=== PATIENT | female | born 1940 | race Caucasian/White ===

== ENCOUNTER 2017-11-21 19:09 | Observation (INO) ==
[2017-11-21] MEDS ORDERED: Aspirin 81 MG TAB.CHEW PO ONE (19:14)
--- NOTE | 2017-11-21 19:14 | Emergency Department Note ---
Disposition Clinical Impression: Chest pain Disposition: Admitted As Inpatient Condition: Good General Adult HPI - General Chief complaint: ED Chest Pain Stated complaint: chest pain Time Seen by Provider: 11/21/17 19:14 - Related Data Home Medications Medication Instructions Recorded Confirmed Amiodarone HCl [Pacerone] 200 mg PO DAILY 12/14/15 12/14/15 Amlodipine Besylate [Amlodipine 10 mg PO DAILY 12/14/15 12/14/15 Besylate] Clopidogrel [Plavix] 75 mg PO DAILY 12/14/15 12/14/15 Furosemide [Lasix] 20 mg PO DAILY 12/14/15 12/14/15 Isosorbide MONOnitrate (24 HR) 60 mg PO DAILY 12/14/15 12/14/15 [Imdur] Levothyroxine Sodium [Tirosint] 100 mg PO QAM 12/14/15 12/14/15 Losartan Potassium [Cozaar] 100 mg PO DAILY 12/14/15 11/21/17 Magnesium Oxide [Magnesium] 400 mg PO DAILY 12/14/15 11/21/17 Metoprolol Succinate [Metoprolol 50 mg PO DAILY 12/14/15 11/21/17 Succinate] Ondansetron HCl [Zofran] 4 mg PO DAILY PRN 12/14/15 11/21/17 Pantoprazole Sodium [Protonix] 40 mg PO BID 12/14/15 11/21/17 Potassium Chloride [Potassium 10 meq PO DAILY 12/14/15 11/21/17 Chloride] Rivaroxaban [Xarelto] 15 mg PO DAILY 12/14/15 11/21/17 Previous Rx's Medication Instructions Recorded Albuterol Neb [Proventil Neb] 2.5 mg IH Q4HR PRN #30 vial.neb 11/04/15 Ipratropium Neb [Atrovent Neb] 0.5 mg IH Q6H PRN #30 inhsol 11/04/15 Acyclovir [Zovirax] 800 mg PO 5XD #50 tablet 09/15/16 predniSONE [PredniSONE] 40 mg PO NOW #20 tablet 09/15/16 Allergies Allergy/AdvReac Type Severity Reaction Status Date / Time ibuprofen Allergy Dizziness Verified 11/21/17 19:18 Sulfa (Sulfonamide Allergy Rash Verified 11/21/17 19:18 Antibiotics) Past Medical History - Past Medical History Medical history: Reports: atrial fibrillation, CHF, coronary artery disease, hyperlipidemia, hypertension, thyroid disease, other Surgical history: Reports: appendectomy, cholecystectomy, hysterectomy Psychiatric history: Reports: no psych history - Social History Smoking Status: Former smoker Smokeless Tobacco Status: No Alcohol use: Reports: none Drug use: Reports: none Course Vital Signs Temperature 98.0 F 11/21/17 19:18 Pulse Rate 75 11/21/17 19:18 Respiratory Rate 16 11/21/17 19:18 Blood Pressure 175/85 11/21/17 19:18 O2 Sat by Pulse Oximetry 94 11/21/17 19:18 Temperature 98.2 F 11/21/17 21:37 Pulse Rate 65 11/21/17 21:37 Respiratory Rate 16 11/21/17 21:37 Blood Pressure 164/69 11/21/17 21:37 O2 Sat by Pulse Oximetry 95 11/21/17 21:37 Oxygen Delivery Oxygen Delivery Room Air Medical Decision Making - Lab Data Result diagrams: 11/21/17 19:24 11/21/17 19:24 Lab Results 11/21/17 11/21/17 11/21/17 Range/Units 19:14 19:14 19:14 WBC (4.3-11.1) K/mcL RBC (3.82-4.97) M/mcL Hgb (11.5-15.4) g/dL Hct (35.3-44.9) % MCV (83.0-100.0) fL MCH (28.0-33.3) pg MCHC (31.6-35.5) g/dL RDW (11.5-14.5) % Plt Count (140-400) K/mcL MPV (9.4-12.4) fL Immature Gran % (0-4) % Seg Neutrophils % % Lymphocytes % % Monocytes % % Eosinophils % % Basophils % % Neutrophils # (1.6-8.9) K/mcL Lymphocytes # (0.6-4.6) K/mcL Monocytes # (0.0-1.3) K/mcL Eosinophils # (0.0-0.6) K/mcL Basophils # (0.0-0.2) K/mcL PT 15.9 H (9.4-12.1) Seconds INR 1.5 Sodium (136-145) mEq/L Potassium (3.5-5.1) mEq/L Chloride (98-107) mEq/L Carbon Dioxide (23-29) mEq/L BUN (8-23) mg/dL Creatinine (0.60-1.20) mg/dL Est GFR ( Amer) (> 60) Est GFR (Non-Af Amer) (> 60) BUN/Creatinine Ratio (6-26) Glucose (70-105) mg/dL Calculated Osmolality (280-300) Calcium (8.6-10.3) mg/dL Total Bilirubin 0.7 (0.3-1.0) mg/dL Direct Bilirubin 0.2 (0.0-0.2) mg/dL Indirect Bilirubin 0.5 (0.0-1.2) mg/dL AST 25 (13-39) Units/L ALT 19 (7-52) Units/L Alkaline Phosphatase 105 H (34-104) Units/L Troponin I (< 0.04) ng/mL B-Natriuretic Peptide 66 (Less than 100) pg/mL Serum Total Protein 7.4 (6.4-8.9) g/dL Albumin 4.2 (3.5-5.7) g/dL Globulin 3.2 (2.4-3.5) g/dL Albumin/Globulin Ratio 1.3 (1.1-2.2) 11/21/17 11/21/17 Range/Units 19:24 19:24 WBC 7.6 (4.3-11.1) K/mcL RBC 4.84 (3.82-4.97) M/mcL Hgb 14.7 (11.5-15.4) g/dL Hct 44.0 (35.3-44.9) % MCV 90.9 (83.0-100.0) fL MCH 30.4 (28.0-33.3) pg MCHC 33.4 (31.6-35.5) g/dL RDW 12.9 (11.5-14.5) % Plt Count 258 (140-400) K/mcL MPV 10.0 (9.4-12.4) fL Immature Gran % 0.5 (0-4) % Seg Neutrophils % 62.4 % Lymphocytes % 26.7 % Monocytes % 8.3 % Eosinophils % 1.6 % Basophils % 0.5 % Neutrophils # 4.8 (1.6-8.9) K/mcL Lymphocytes # 2.0 (0.6-4.6) K/mcL Monocytes # 0.6 (0.0-1.3) K/mcL Eosinophils # 0.1 (0.0-0.6) K/mcL Basophils # 0.0 (0.0-0.2) K/mcL PT (9.4-12.1) Seconds INR Sodium 137 (136-145) mEq/L Potassium 3.9 (3.5-5.1) mEq/L Chloride 106 (98-107) mEq/L Carbon Dioxide 21 L (23-29) mEq/L BUN 12 (8-23) mg/dL Creatinine 1.19 (0.60-1.20) mg/dL Est GFR ( Amer) 53 L (> 60) Est GFR (Non-Af Amer) 44 L (> 60) BUN/Creatinine Ratio 10 (6-26) Glucose 110 H (70-105) mg/dL Calculated Osmolality 284 (280-300) Calcium 9.4 (8.6-10.3) mg/dL Total Bilirubin (0.3-1.0) mg/dL Direct Bilirubin (0.0-0.2) mg/dL Indirect Bilirubin (0.0-1.2) mg/dL AST (13-39) Units/L ALT (7-52) Units/L Alkaline Phosphatase (34-104) Units/L Troponin I < 0.03 (< 0.04) ng/mL B-Natriuretic Peptide (Less than 100) pg/mL Serum Total Protein (6.4-8.9) g/dL Albumin (3.5-5.7) g/dL Globulin (2.4-3.5) g/dL Albumin/Globulin Ratio (1.1-2.2) Attestation Statement - Attestation Attestation: I examined this patient and my medical decision-making was reviewed with the Resident Physician. I agree with the documented findings, disposition and treatment plan as described except to the extent set forth below. [id number] time provided Patient arrives to the treatment area by wheelchair complaining of chest discomfort and dyspnea. She appears in no acute distress on exam. Patient evaluated in conjunction with the resident physician Dr. Arias
[2017-11-21] MEDS ORDERED: Nitroglycerin 0.4 MG TAB.SUBL SL PRN (19:20)
--- NOTE | 2017-11-21 19:23 | Emergency Department Note ---
Disposition Clinical Impression: Chest pain Qualifiers: Chest pain type: unspecified Qualified Code(s): R07.9 - Chest pain, unspecified Disposition: Admitted As Inpatient Condition: Good Chest Pain HPI - General Chief Complaint: ED Chest Pain Stated Complaint: chest pain Time Seen by Provider: 11/21/17 19:14 Source: patient Mode of arrival: wheelchair Limitations: no limitations Vital Signs Reviewed: Yes Nursing Notes Reviewed: Yes - History of Present Illness HPI Narrative: 77-year-old female history of ACS status post stents in the past, hypertension, A. fib on Coumadin as well as pacemaker presents for evaluation of chest pain. Patient describes chest pain and anterior chest with radiation to her neck. States symptom onset was last night. Patient denies a nausea vomiting or diaphoresis. Patient denies history of heart attacks in the past does state she has had a stent placed. Patient on Plavix as well as Xarelto. Patient denies any abdominal pain. Patient also states that she has a history of hernia. No aggravating or alleviating factors identified. - Related Data Home Medications Medication Instructions Recorded Confirmed Amiodarone HCl [Pacerone] 200 mg PO DAILY 12/14/15 12/14/15 Amlodipine Besylate [Amlodipine 10 mg PO DAILY 12/14/15 12/14/15 Besylate] Clopidogrel [Plavix] 75 mg PO DAILY 12/14/15 12/14/15 Furosemide [Lasix] 20 mg PO DAILY 12/14/15 12/14/15 Isosorbide MONOnitrate (24 HR) 60 mg PO DAILY 12/14/15 12/14/15 [Imdur] Levothyroxine Sodium [Tirosint] 100 mg PO QAM 12/14/15 12/14/15 Losartan Potassium [Cozaar] 100 mg PO DAILY 12/14/15 11/21/17 Magnesium Oxide [Magnesium] 400 mg PO DAILY 12/14/15 11/21/17 Metoprolol Succinate [Metoprolol 50 mg PO DAILY 12/14/15 11/21/17 Succinate] Ondansetron HCl [Zofran] 4 mg PO DAILY PRN 12/14/15 11/21/17 Pantoprazole Sodium [Protonix] 40 mg PO BID 12/14/15 11/21/17 Potassium Chloride [Potassium 10 meq PO DAILY 04/21/16 03/30/18 Chloride] Rivaroxaban [Xarelto] 15 mg PO DAILY 12/14/15 11/21/17 Previous Rx's Medication Instructions Recorded Albuterol Neb [Proventil Neb] 2.5 mg IH Q4HR PRN #30 vial.neb 11/04/15 Ipratropium Neb [Atrovent Neb] 0.5 mg IH Q6H PRN #30 inhsol 11/04/15 Acyclovir [Zovirax] 800 mg PO 5XD #50 tablet 09/15/16 predniSONE [PredniSONE] 40 mg PO NOW #20 tablet 09/15/16 Allergies Allergy/AdvReac Type Severity Reaction Status Date / Time ibuprofen Allergy Dizziness Verified 11/21/17 19:18 Sulfa (Sulfonamide Allergy Rash Verified 11/21/17 19:18 Antibiotics) All systems ED: reviewed and negative except as stated. Constitutional: Denies: fever Cardiovascular: Reports: chest pain Respiratory: Denies: cough, dyspnea Gastrointestinal: Denies: abdominal pain, nausea, vomiting Chest Pain PMH - Past Medical History Medical history: Reports: atrial fibrillation, CHF, coronary artery disease, hyperlipidemia, hypertension, thyroid disease, other Surgical history: Reports: appendectomy, cholecystectomy, hysterectomy Psychiatric history: Reports: no psych history - Social History Smoking Status: Former smoker Alcohol use: Reports: none Drug use: Reports: none Physical Exam - General Limitations: no limitations General appearance: alert, in no apparent distress - Head Head exam: atraumatic, normocephalic, normal inspection - Eye Eye exam: Present: normal appearance, PERRL, EOMI - ENT ENT exam: normal exam - Neck Neck exam: Present: normal inspection - Chest Chest inspection: Present: normal inspection, symmetric chest wall rise - Respiratory Respiratory exam: Present: normal lung sounds bilaterally. Absent: respiratory distress - Cardiovascular Cardiovascular exam: Present: regular rate, normal rhythm. Absent: systolic murmur - Abdominal Exam Abdominal exam: Present: soft, Non-Tender - Extremities Exam Extremities exam: Present: normal inspection. Absent: pedal edema - Expanded Lower Extremity Exam Neurovascular/Tendon exam: Present: normal capillary refill. Absent: pulse deficit, motor deficit, sensory deficit - Neurological Exam Neurological exam: Present: alert, oriented X3, CN II-XII intact - Skin Skin exam: Present: warm, dry, intact, normal color Course - Reevaluation(s) Reevaluation #1: Patient seen and examined. Patient denies any chest pain. Given the patient's history, the patient would likely need further evaluation with cardiopulmonary monitoring and provocative testing. Patient is agreeable with inpatient stay. Time: 20:05 Vital Signs Temperature 98.0 F 11/21/17 19:18 Pulse Rate 75 11/21/17 19:18 Respiratory Rate 16 11/21/17 19:18 Blood Pressure 175/85 11/21/17 19:18 O2 Sat by Pulse Oximetry 94 11/21/17 19:18 Temperature 98.0 F 11/21/17 19:18 Pulse Rate 73 11/21/17 20:51 Respiratory Rate 18 11/21/17 21:13 Blood Pressure 124/87 11/21/17 21:13 O2 Sat by Pulse Oximetry 93 11/21/17 20:51 Oxygen Delivery Oxygen Delivery Room Air Chest Pain - MDM Narrative Medical decision making narrative: 77-year-old female persists for evaluation of chest pain. Patient states she has had chest pain across the anterior chest with radiation to her neck. Patient's pain was relieved during her ED course. Patient does have a history of stents in the past. Patient has not had any recent cardiopulmonary evaluation. Patient's symptoms less likely consistent with a pulmonary embolism and the patient is on oral anticoagulation for her A. fib. - Lab Data Lab results reviewed: Yes I reviewed the patient's lab results. Result diagrams: 11/21/17 19:24 11/21/17 19:24 Lab Results 11/21/17 11/21/17 11/21/17 Range/Units 19:14 19:14 19:14 WBC (4.3-11.1) K/mcL RBC (3.82-4.97) M/mcL Hgb (11.5-15.4) g/dL Hct (35.3-44.9) % MCV (83.0-100.0) fL MCH (28.0-33.3) pg MCHC (31.6-35.5) g/dL RDW (11.5-14.5) % Plt Count (140-400) K/mcL MPV (9.4-12.4) fL Immature Gran % (0-4) % Seg Neutrophils % % Lymphocytes % % Monocytes % % Eosinophils % % Basophils % % Neutrophils # (1.6-8.9) K/mcL Lymphocytes # (0.6-4.6) K/mcL Monocytes # (0.0-1.3) K/mcL Eosinophils # (0.0-0.6) K/mcL Basophils # (0.0-0.2) K/mcL PT 15.9 H (9.4-12.1) Seconds INR 1.5 Sodium (136-145) mEq/L Potassium (3.5-5.1) mEq/L Chloride (98-107) mEq/L Carbon Dioxide (23-29) mEq/L BUN (8-23) mg/dL Creatinine (0.60-1.20) mg/dL Est GFR ( Amer) (> 60) Est GFR (Non-Af Amer) (> 60) BUN/Creatinine Ratio (6-26) Glucose (70-105) mg/dL Calculated Osmolality (280-300) Calcium (8.6-10.3) mg/dL Total Bilirubin 0.7 (0.3-1.0) mg/dL Direct Bilirubin 0.2 (0.0-0.2) mg/dL Indirect Bilirubin 0.5 (0.0-1.2) mg/dL AST 25 (13-39) Units/L ALT 19 (7-52) Units/L Alkaline Phosphatase 105 H (34-104) Units/L Troponin I (< 0.04) ng/mL B-Natriuretic Peptide 66 (Less than 100) pg/mL Serum Total Protein 7.4 (6.4-8.9) g/dL Albumin 4.2 (3.5-5.7) g/dL Globulin 3.2 (2.4-3.5) g/dL Albumin/Globulin Ratio 1.3 (1.1-2.2) 11/21/17 11/21/17 Range/Units 19:24 19:24 WBC 7.6 (4.3-11.1) K/mcL RBC 4.84 (3.82-4.97) M/mcL Hgb 14.7 (11.5-15.4) g/dL Hct 44.0 (35.3-44.9) % MCV 90.9 (83.0-100.0) fL MCH 30.4 (28.0-33.3) pg MCHC 33.4 (31.6-35.5) g/dL RDW 12.9 (11.5-14.5) % Plt Count 258 (140-400) K/mcL MPV 10.0 (9.4-12.4) fL Immature Gran % 0.5 (0-4) % Seg Neutrophils % 62.4 % Lymphocytes % 26.7 % Monocytes % 8.3 % Eosinophils % 1.6 % Basophils % 0.5 % Neutrophils # 4.8 (1.6-8.9) K/mcL Lymphocytes # 2.0 (0.6-4.6) K/mcL Monocytes # 0.6 (0.0-1.3) K/mcL Eosinophils # 0.1 (0.0-0.6) K/mcL Basophils # 0.0 (0.0-0.2) K/mcL PT (9.4-12.1) Seconds INR Sodium 137 (136-145) mEq/L Potassium 3.9 (3.5-5.1) mEq/L Chloride 106 (98-107) mEq/L Carbon Dioxide 21 L (23-29) mEq/L BUN 12 (8-23) mg/dL Creatinine 1.19 (0.60-1.20) mg/dL Est GFR ( Amer) 53 L (> 60) Est GFR (Non-Af Amer) 44 L (> 60) BUN/Creatinine Ratio 10 (6-26) Glucose 110 H (70-105) mg/dL Calculated Osmolality 284 (280-300) Calcium 9.4 (8.6-10.3) mg/dL Total Bilirubin (0.3-1.0) mg/dL Direct Bilirubin (0.0-0.2) mg/dL Indirect Bilirubin (0.0-1.2) mg/dL AST (13-39) Units/L ALT (7-52) Units/L Alkaline Phosphatase (34-104) Units/L Troponin I < 0.03 (< 0.04) ng/mL B-Natriuretic Peptide (Less than 100) pg/mL Serum Total Protein (6.4-8.9) g/dL Albumin (3.5-5.7) g/dL Globulin (2.4-3.5) g/dL Albumin/Globulin Ratio (1.1-2.2) - Radiology Data Radiology results reviewed: Yes I reviewed the patient's radiology results. Chest X-Ray 11/21/17 19:14 IMPRESSION: Cardiomegaly. No radiographic evidence of acute pulmonary disease. D/ / Chaz Meek / Chaz Meek Interpreting Provider: Chaz Meek - EKG Data EKG attestation: Yes I reviewed and interpreted this EKG. EKG shows normal: sinus rhythm Rate: normal Rhythm: NSR Pierce/QRS: left axis deviation, LBBB Interpretation: no acute changes, unchanged when compared to prior tracing (date ), nonspecific ST-T wave changes Heart Score - Score History: Moderately Suspicious EKG: Normal Age: Greater than 65 Risk Factors: Equal/Greater than 3 risk factor or history of atherosclerotic disease Troponin: Less than normal limit HEART Score Total: 5 S.B.A.R. - S.B.A.RRachel Situation: Demographics Background: Presenting Complaint Assessment: Vital Signs, Patient/Family Expectation Recommendation: Barrier(s) to disposition, Recommendation based on pending studies, treatments, or consults S.B.A.RRachel Report Given to: Dr. Taryn Herrera Repor Time: 20:27
[2017-11-21 20:10] LABS: Basophils % 0.5 %; Eosinophils # 0.1 K/mcL (0.0-0.6); Eosinophils % 1.6 %; Hemoglobin 14.7 g/dL (11.5-15.4); Immature Granulocytes % 0.5 % (0-4); Lymphocytes % 26.7 %; Mean Corpuscular HGB Conc 33.4 g/dL (31.6-35.5); Mean Corpuscular Hemoglobin 30.4 pg (28.0-33.3); Mean Corpuscular Volume 90.9 fL (83.0-100.0); Monocytes # 0.6 K/mcL (0.0-1.3); Monocytes % 8.3 %; Neutrophils # 4.8 K/mcL (1.6-8.9); Platelet Count 258 K/mcL (140-400); Red Blood Count 4.84 M/mcL (3.82-4.97); Red Cell Distribution Width 12.9 % (11.5-14.5); Segmented Neutrophils % 62.4 %
[2017-11-21 20:17] LABS: INR 1.5; Prothrombin Time 15.9 Seconds (9.4-12.1)
[2017-11-21 20:41] LABS: Albumin 4.2 g/dL (3.5-5.7); Albumin/Globulin Ratio 1.3 (1.1-2.2); Bilirubin,Direct 0.2 mg/dL (0.0-0.2); Bilirubin,Indirect 0.5 mg/dL (0.0-1.2); Bilirubin,Total 0.7 mg/dL (0.3-1.0); Globulin 3.2 g/dL (2.4-3.5); Total Protein 7.4 g/dL (6.4-8.9)
[2017-11-21 20:43] LABS: BUN/Creatinine Ratio 10 (6-26); Blood Urea Nitrogen 12 mg/dL (8-23); Calcium 9.4 mg/dL (8.6-10.3); Carbon Dioxide 21 mEq/L (23-29); Chloride 106 mEq/L (98-107); Glucose 110 mg/dL (70-105); Osmolality,Calculated 284 (280-300); Potassium 3.9 mEq/L (3.5-5.1); Sodium 137 mEq/L (136-145); Troponin I < 0.03 ng/mL (< 0.04); eGFR For African Americans 53 (> 60); eGFR For Non-African Americans 44 (> 60)
--- NOTE | 2017-11-21 21:19 | Internal Med History&Physical ---
Date of Encounter: 11/21/17 Time of Encounter: 11:00 Assessment and Plan (1) Chest pain Current visit: Yes Status: Acute Patient with substernal burning chest pain 1 day She does have a history of coronary arterial disease with 2 stents in addition to pacemaker placement Will trend serial cardiac biomarkers and monitor on telemetry Also order nuclear medicine stress test for the morning for ACS rule out Qualifiers: Chest pain type: unspecified Qualified Code(s): R07.9 - Chest pain, unspecified (2) Atrial fibrillation Current visit: No Status: Chronic Rate controlled; continue amiodarone and OAC Qualifiers: Atrial fibrillation type: unspecified Qualified Code(s): I48.91 - Unspecified atrial fibrillation (3) CAD (coronary artery disease) Current visit: No Status: Chronic Patient with history of 2 stents years ago Continue Plavix Qualifiers: Qualified Code(s): I25.10 - Atherosclerotic heart disease of [place] coronary artery without angina pectoris (4) Hypothyroid Current visit: Yes Status: Acute Continue levothyroxine Qualifiers: Hypothyroidism type: unspecified Qualified Code(s): E03.9 - Hypothyroidism , unspecified (5) Cardiac pacemaker in situ Current visit: No Status: Chronic Pacemaker was just recently interrogated (6) HTN (hypertension), benign Current visit: Yes Status: Acute Showed; continue home medications (7) DVT prophylaxis Current visit: Yes Status: Acute She on Xarelto Internal Medicine - H&P: HPI Chief complaint: Chest pain Admitted From: Home Plans for Post Hospital Care: Home History of present illness: Patient is a 77-year-old female with past medical history significant for ischemic cardiomyopathy, atrial fibrillation, hypertension, hyperlipidemia and hypothyroid who presents to the ER on 11/21/17 due to chest pain. Patient is a poor historian but reports of a one-day history of substernal burning chest pain which lasts for minutes without any radiation or provoking/ relieving factors. Patient reports of associated symptoms of shortness of breath but denies any nausea/vomiting or diaphoresis. Patient was brought to the ER for further evaluation. In the ER, chest x-ray showed no acute findings. Due to patients cardiac history patient will be admitted for ACS rule out. Past Med Surg Social Fam HX - Past Medical History Medical history: atrial fibrillation, CHF, coronary artery disease, hyperlipidemia, hypertension, thyroid disease, other Psychiatric history: no psych history - Past Surgical History Surgical History: appendectomy, cholecystectomy, hysterectomy - Social History Smoking Status: Former smoker Smokeless Tobacco Status: No Alcohol use: none Drug use: none - Family History Mother Living Status: Hx Family Cancer: Yes Hx Family GI Disorders: Yes (GI Cancer) Internal Medicine - H&P: Meds Albuterol Neb [Proventil Neb] 2.5 mg IH Q4HR PRN #30 vial.neb 11/04/15 [Rx] Ipratropium Neb [Atrovent Neb] 0.5 mg IH Q6H PRN #30 inhsol 11/04/15 [Rx] Amiodarone HCl [Pacerone] 200 mg PO DAILY 12/14/15 [History] Amlodipine Besylate [Amlodipine Besylate] 10 mg PO DAILY 12/14/15 [History] Clopidogrel [Plavix] 75 mg PO DAILY 12/14/15 [History] Furosemide [Lasix] 20 mg PO DAILY 12/14/15 [History] Isosorbide MONOnitrate (24 HR) [Imdur] 60 mg PO DAILY 12/14/15 [History] Levothyroxine Sodium [Tirosint] 100 mg PO QAM 12/14/15 [History] Losartan Potassium [Cozaar] 100 mg PO DAILY 12/14/15 [History] Magnesium Oxide [Magnesium] 400 mg PO DAILY 12/14/15 [History] Metoprolol Succinate [Metoprolol Succinate] 50 mg PO DAILY 12/14/15 [History] Ondansetron HCl [Zofran] 4 mg PO DAILY PRN 12/14/15 [History] Pantoprazole Sodium [Protonix] 40 mg PO BID 12/14/15 [History] Potassium Chloride [Potassium Chloride] 10 meq PO DAILY 12/14/15 [History] Rivaroxaban [Xarelto] 15 mg PO DAILY 12/14/15 [History] Acyclovir [Zovirax] 800 mg PO 5XD #50 tablet 09/15/16 [Rx] predniSONE [PredniSONE] 40 mg PO NOW #20 tablet 09/15/16 [Rx] 3 Allergy/AdvReac Type Severity Reaction Status Date / Time ibuprofen Allergy Dizziness Verified 11/21/17 19:18 Sulfa (Sulfonamide Allergy Rash Verified 11/21/17 19:18 Antibiotics) All Systems PM: A 10-system review of systems was performed and is negative for pertinent findings except as documented above in the HPI. - Constitutional Vitals: Temp Pulse Resp BP Pulse Ox 98.0 F 73 18 124/87 93 11/21/17 19:18 11/21/17 20:51 11/21/17 21:13 11/21/17 21:13 11/21/17 20:51 General appearance: Present: A&O X 3, no acute distress - Head Head exam: Present: normocephalic - Eye Eye exam: Present: normal appearance - ENT ENT exam: Present: mucous membranes moist - Respiratory Respiratory exam: Present: CTAB. Absent: accessory muscle use, rales, rhonchi, wheezes - Cardiovascular Cardiovascular exam: Present: RRR, +S1, +S2. Absent: diastolic murmur, gallop, rubs, systolic murmur - GI/Abdominal GI/Abdominal exam: Present: normal bowel sounds, soft, no peritoneal signs. Absent: distended, tenderness - Extremities Exam Extremities exam: Absent: pedal edema - Neurological Exam Neurological exam: Present: oriented X3 - Psychiatric Psychiatric exam: Present: normal mood - Skin Skin exam: Present: normal color Internal Med - H&P Results - Labs CBC & Chem 7: 11/21/17 19:24 11/21/17 19:24
[2017-11-21] MEDS ORDERED: Naloxone 0.4 MG/ML INJ IVP PRN (21:24)
--- NOTE | 2017-11-21 22:19 | Event Note ---
Date of Encounter: 11/21/17 Time of Encounter: 22:17 Alerted by patient's nurse Kayy that the patient had not had her amiodarone, amlodipine, Plavix, Imdur, Cozaar, or Xarelto today. Instructed nurse to double- check w/pt. and family that pt. had, in fact, not taken these medications today. Nurse confirmed w/pt. and family that pt. had not had these medications. Amiodarone, amlodipine, Plavix, Imdur, Cozaar, and Xarelto ordered for administration now. Pt. to be monitored closely.
[2017-11-21] MEDS: amLODIPine 5 MG TABLET PO SCH (22:34)
[2017-11-21] MEDS: *HR* Amiodarone 200 MG TABLET PO SCH (22:34)
[2017-11-21] MEDS: *HR* Rivaroxaban 15 MG TABLET PO SCH (22:35)
[2017-11-21] MEDS: Isosorbide MONOnitrate (24 HR) 60 MG TAB.ER.24H PO SCH (22:35)
[2017-11-22 02:13] LABS: Basophils # 0.1 K/mcL (0.0-0.2); Basophils % 0.7 %; Eosinophils # 0.1 K/mcL (0.0-0.6); Eosinophils % 1.6 %; Hematocrit 37.8 % (35.3-44.9); Immature Granulocytes % 0.3 % (0-4); Lymphocytes # 1.8 K/mcL (0.6-4.6); Mean Corpuscular HGB Conc 33.1 g/dL (31.6-35.5); Mean Corpuscular Volume 90.6 fL (83.0-100.0); Mean Platelet Volume 9.9 fL (9.4-12.4); Monocytes # 0.6 K/mcL (0.0-1.3); Monocytes % 9.6 %; Neutrophils # 4.1 K/mcL (1.6-8.9); Platelet Count 222 K/mcL (140-400); Red Blood Count 4.17 M/mcL (3.82-4.97); Red Cell Distribution Width 13.1 % (11.5-14.5); Segmented Neutrophils % 60.8 %
[2017-11-22 02:17] LABS: Hemoglobin 12.5 g/dL (11.5-15.4)
[2017-11-22 02:26] LABS: Calcium 8.7 mg/dL (8.6-10.3); Potassium 3.7 mEq/L (3.5-5.1)
[2017-11-22] MEDS ORDERED: Regadenoson 0.4 MG/5 ML SYRINGE IVP ONE (06:02)
[2017-11-22] MEDS: amLODIPine 5 MG TABLET PO SCH (09:44)
[2017-11-22] MEDS: Metoprolol XL (24 HR) Succ 50 MG TAB.ER.24H PO SCH (09:44)
[2017-11-22] MEDS: *HR* Amiodarone 200 MG TABLET PO SCH (09:44)
[2017-11-22] MEDS: Isosorbide MONOnitrate (24 HR) 60 MG TAB.ER.24H PO SCH (09:44)
[2017-11-22] MEDS: *HR* Rivaroxaban 15 MG TABLET PO SCH (09:44)
[2017-11-22] MEDS: Magnesium Oxide 400 MG TABLET PO SCH (09:44)
[2017-11-22] MEDS: traMADol 50 MG TABLET PO PRN ×2 (11:17→18:55)
--- NOTE | 2017-11-22 18:26 | Internal Med Progress Note ---
Date of Encounter: 11/22/17 Time of Encounter: 09:10 - Assessment and plan (1) Chest pain Current Visit: Yes Status: Acute Assessment and plan: She reports upper right and left chest burning since night before admission after she bent over to do laundry at home. She denies any relation to food. Patient's left anterior chest wall is tender to palpation over pacemaker. She reports it has been tender since it was placed. She reports associated shortness of breath with the pain. She denies any nausea, vomiting, diaphoresis , or radiation of the pain. Her ports that the pain is intermittent, did not have any during exam. He reports prior history of coronary artery disease with 2 stents, as well as a pacemaker. Patient also reports a hiatal hernia that she has not had evaluated in some time and reports that over the last few weeks she has had a full feeling and a decreased appetite. She does have tenderness with palpation in the epigastric area. Troponins negative. Chest x-ray shows cardiomegaly, negative for acute process. Patient is a 2 day stress test, first a completed today. Secondary stress test will be completed in 2 days. Patient's last echocardiogram was in November, that showed an LVEF of 50% with mild MR, dilated RV and normal LV size and systolic function. Echo tomorrow Finish stress test in 2 days Continue telemetry Continue home medications. Qualifiers: Chest pain type: unspecified Qualified Code(s): R07.9 - Chest pain, unspecified (2) DVT prophylaxis Current Visit: Yes Status: Acute Assessment and plan: Xarelto. (3) HTN (hypertension), benign Current Visit: Yes Status: Acute Assessment and plan: Chronic. Continue home medications. (4) Hypothyroid Current Visit: Yes Status: Acute Assessment and plan: Continue home dose of levothyroxine. Qualifiers: Hypothyroidism type: unspecified Qualified Code(s): E03.9 - Hypothyroidism , unspecified (5) Atrial fibrillation Current Visit: Yes Status: Chronic Assessment and plan: Rate controlled. Continue anticoagulation and amiodarone. Qualifiers: Atrial fibrillation type: unspecified Qualified Code(s): I48.91 - Unspecified atrial fibrillation (6) CAD (coronary artery disease) Current Visit: Yes Status: Chronic Assessment and plan: Per patient history. Continue home medications. Continue telemetry. Plan as above Qualifiers: Coronary Disease-Associated Artery/Lesion type: [place] artery [place] vs. transplanted heart: [place] heart Associated angina: angina presence unspecified Qualified Code(s): I25.10 - Atherosclerotic heart disease of [place] coronary artery without angina pectoris (7) Cardiac pacemaker in situ Current Visit: Yes Status: Chronic Assessment and plan: Pacemaker placed 4-5 years ago. Tenderness at insertion site since placement. Recently interrogated. - Time Spent With Patient less than 15 minutes - Subjective Interval history: Patient was seen and assessed at 9:10 AM. Patient reports that she has a burning in her upper chest and right and left, she describes as hot, she will come shortness of breath. She also reports chronic soreness to her pacer site since its insertion. She states that pain began night before last after she was doing laundry. Patient reports shows have a hiatal hernia and reports recent history of feeling full and decreased appetite this week. She denies any relation to the pain with food. She denies headache, blurred vision, neck pain, shortness of breath, or chest pain at this time. No abdominal pain, nausea, vomiting, diarrhea. - Constitutional Vitals: Temp Pulse Resp BP Pulse Ox 98.3 F 60 16 120/65 93 11/22/17 15:48 11/22/17 15:48 11/22/17 15:48 11/22/17 15:48 11/22/17 15:48 General appearance: Present: cooperative, A&O X 3, pleasant, no acute distress, answers questions appropriately - Head Head exam: Present: atraumatic, normal inspection, normocephalic - Eye Eye exam: Present: normal appearance, conjuntiva pink, sclera anicteric - Neck Neck exam general surgery: Present: normal inspection, supple, trachea midline. Absent: lymphadenopathy, tenderness - Respiratory Respiratory exam: Present: chest wall tenderness, CTAB. Absent: accessory muscle use, rales, rhonchi, wheezes - Cardiovascular Cardiovascular exam: Present: RRR, +S1, +S2. Absent: diastolic murmur, gallop, rubs, systolic murmur - GI/Abdominal GI/Abdominal exam: Present: normal bowel sounds, soft, tenderness. Absent: distended, hepatomegaly Additional comments: Tenderness with palpation in epigastric area. - Extremities Exam Extremities exam: Present: normal capillary refill, warm, radial pulses palpable and symmetrical. Absent: calf tenderness, cyanotic, pedal edema - Neurological Exam Neurological exam: Present: alert, oriented X3, pronater drift. Absent: facial droop, speech deficit - Skin Skin exam: Present: dry, intact, normal color, warm. Absent: rash Internal Medicine: Result - Labs CBC & Chem 7: 11/22/17 01:33 11/22/17 01:33 Labs: Short CBC 11/22/17 Range/Units 01:33 WBC 6.7 (4.3-11.1) K/mcL Hgb 12.5 D (11.5-15.4) g/dL Hct 37.8 (35.3-44.9) % Plt Count 222 (140-400) K/mcL Neutrophils # 4.1 (1.6-8.9) K/mcL BMP 11/22/17 01:33 Sodium 137 Potassium 3.7 Chloride 106 Carbon Dioxide 23 BUN 15 Creatinine 1.27 H Glucose 119 H Calcium 8.7 Cardiac Enzymes 11/22/17 11/22/17 11/22/17 Range/Units 01:33 07:43 13:44 Troponin I < 0.03 < 0.03 < 0.03 (< 0.04) ng/mL - ABG Interpretation ABG results: PT/INR, D-dimer PT 15.9 Seconds (9.4-12.1) H 11/21/17 19:14 Consult Discharge Plan - Plan Referrals: Yajaira Ryan DO [Primary Care Provider] -
[2017-11-22] MEDS ORDERED: DICLOFENAC 1% TP PRN (20:32)
[2017-11-22] MEDS: Ondansetron ODT 4 MG TAB.RAPDIS PO PRN (23:03)
[2017-11-23 05:01] LABS: Basophils % 0.6 %; Eosinophils # 0.3 K/mcL (0.0-0.6); Eosinophils % 4.3 %; Hematocrit 40.7 % (35.3-44.9); Hemoglobin 13.2 g/dL (11.5-15.4); Immature Granulocytes % 0.3 % (0-4); Lymphocytes # 2.1 K/mcL (0.6-4.6); Lymphocytes % 31.5 %; Mean Corpuscular HGB Conc 32.4 g/dL (31.6-35.5); Mean Corpuscular Hemoglobin 30.1 pg (28.0-33.3); Mean Corpuscular Volume 92.7 fL (83.0-100.0); Mean Platelet Volume 10.1 fL (9.4-12.4); Monocytes # 0.6 K/mcL (0.0-1.3); Monocytes % 8.9 %; Neutrophils # 3.6 K/mcL (1.6-8.9); Platelet Count 242 K/mcL (140-400); Red Blood Count 4.39 M/mcL (3.82-4.97); Segmented Neutrophils % 54.4 %
[2017-11-23 05:19] LABS: Potassium 4.1 mEq/L (3.5-5.1)
[2017-11-23] MEDS ORDERED: DICLOFENAC SODIUM TP PRN (08:01)
[2017-11-23] MEDS ORDERED: DICLOFENAC 1% TP PRN (08:30)
[2017-11-23] MEDS: 0.9 % Sodium Chloride 1,000 ML IVC SCH (08:33)
[2017-11-23] MEDS: *HR* Amiodarone 200 MG TABLET PO SCH (08:34)
[2017-11-23] MEDS: Metoprolol XL (24 HR) Succ 50 MG TAB.ER.24H PO SCH (08:35)
[2017-11-23] MEDS: amLODIPine 5 MG TABLET PO SCH (08:35)
[2017-11-23] MEDS: *HR* Rivaroxaban 15 MG TABLET PO SCH (08:35)
[2017-11-23] MEDS: Magnesium Oxide 400 MG TABLET PO SCH (08:35)
[2017-11-23] MEDS: Ondansetron ODT 4 MG TAB.RAPDIS PO PRN (10:46)
[2017-11-23] MEDS: Loratadine 10 MG TABLET PO SCH (11:34)
--- NOTE | 2017-11-23 18:13 | Internal Med Progress Note ---
Date of Encounter: 11/23/17 Time of Encounter: 10:45 - Assessment and plan (1) Chest pain Current Visit: Yes Status: Acute Assessment and plan: Troponins negative. Chest x-ray shows cardiomegaly, negative for acute process. Patient is a 2 day stress test, first a completed today. Secondary stress test will be completed in 2 days. Echo completed today shows low normal to mildly reduced LV systolic function, atypical septal motion, mildly dilated left ventricle, mild LV DD, mild to moderate MR, [id number] TR. We will consult cardiology for abnormal septal motion. Patient does have LHC previously which shows possible prior infarct. Finish stress test tomorrow Continue telemetry Continue home medications. Qualifiers: Chest pain type: unspecified Qualified Code(s): R07.9 - Chest pain, unspecified (2) DVT prophylaxis Current Visit: Yes Status: Acute Assessment and plan: Xarelto. Pt is ambulatory in room. (3) HTN (hypertension), benign Current Visit: Yes Status: Acute Assessment and plan: Chronic. Continue home medications. Well controlled. (4) Hypothyroid Current Visit: Yes Status: Acute Assessment and plan: Continue home dose of levothyroxine. Follow with PCP after discharge. Qualifiers: Hypothyroidism type: unspecified Qualified Code(s): E03.9 - Hypothyroidism , unspecified (5) Atrial fibrillation Current Visit: Yes Status: Chronic Assessment and plan: Rate controlled. Continue Xarelto and amiodarone. Qualifiers: Atrial fibrillation type: unspecified Qualified Code(s): I48.91 - Unspecified atrial fibrillation (6) CAD (coronary artery disease) Current Visit: Yes Status: Chronic Assessment and plan: Per patient history. Continue home medications. Continue telemetry. Plan as above Qualifiers: Coronary Disease-Associated Artery/Lesion type: [place] artery [place] vs. transplanted heart: [place] heart Associated angina: angina presence unspecified Qualified Code(s): I25.10 - Atherosclerotic heart disease of [place] coronary artery without angina pectoris (7) Cardiac pacemaker in situ Current Visit: Yes Status: Chronic Assessment and plan: Pacemaker placed 4-5 years ago. Pt reports tenderness at insertion site since insertion. Recently interrogated. (8) Hiatal hernia Current Visit: Yes Status: Chronic Assessment and plan: Patient reports hiatal hernia. She has had no symptoms. She follows with primary care and does not remember having any imaging done. Prior CT abdomen and pelvis shows hiatal hernia. Patient is now having new symptoms over the last week including chest pain and early satiety. CT abdomen and pelvis ordered for morning. - Time Spent With Patient less than 15 minutes - Subjective Interval history: Patient was seen and assessed at 1045 AM. Patient reports new onset nausea and frontal headache. She denies neck pain, blurred vision, shortness of breath, or chest pain at this time. No abdominal pain, vomiting, diarrhea. - Constitutional Vitals: Temp Pulse Resp BP Pulse Ox 97.9 F 60 15 138/75 93 11/23/17 16:10 11/23/17 16:10 11/23/17 16:10 11/23/17 16:10 11/23/17 16:10 General appearance: Present: cooperative, A&O X 3, pleasant, no acute distress, answers questions appropriately - Head Head exam: Present: atraumatic, normal inspection, normocephalic - Eye Eye exam: Present: normal appearance, conjuntiva pink, sclera anicteric - Neck Neck exam general surgery: Present: supple, trachea midline. Absent: lymphadenopathy, tenderness - Respiratory Respiratory exam: Present: decreased breath sounds, CTAB. Absent: accessory muscle use, rales, rhonchi, wheezes - Cardiovascular Cardiovascular exam: Present: RRR, +S1, +S2. Absent: diastolic murmur, gallop, rubs, systolic murmur - GI/Abdominal GI/Abdominal exam: Present: normal bowel sounds, soft. Absent: distended, tenderness - Extremities Exam Extremities exam: Present: normal capillary refill, normal inspection, warm, radial pulses palpable and symmetrical. Absent: calf tenderness, cyanotic, pedal edema, tenderness - Neurological Exam Neurological exam: Present: alert, oriented X3, no focal deficits, strengths equal and symetr throughout. Absent: facial droop, speech deficit - Expanded Neurological Exam Neurological exam expanded: Absent: expressive aphasia Patient oriented to: Present: person, place, time Speech: Absent: expressive aphasia, garbled, receptive aphasia, slurred, stutter Cranial Nerves: tongue deviation PM: Normal Cerebellar function: finger to nose: Normal Neuro motor strength exam: LUE: 4, RUE: 4, LLE: 4, RLE: 4 Coma Scale Eye Opening: Spontaneous Coma Scale Motor Response: Obeys Commands Coma Scale Verbal Response: Oriented Coma Scale Total: 15 - Skin Skin exam: Present: dry, intact, normal color, warm. Absent: rash Internal Medicine: Result - Labs CBC & Chem 7: 11/23/17 04:11 11/23/17 04:11 Labs: Short CBC 11/23/17 Range/Units 04:11 WBC 6.5 (4.3-11.1) K/mcL Hgb 13.2 (11.5-15.4) g/dL Hct 40.7 (35.3-44.9) % Plt Count 242 (140-400) K/mcL Neutrophils # 3.6 (1.6-8.9) K/mcL BMP 11/23/17 04:11 Sodium 135 L Potassium 4.1 Chloride 104 Carbon Dioxide 25 BUN 21 Creatinine 1.34 H Glucose 95 Calcium 9.0 - ABG Interpretation ABG results: PT/INR, D-dimer PT 15.9 Seconds (9.4-12.1) H 11/21/17 19:14 - Impressions Impressions Head CT 11/23/17 10:44 IMPRESSION: No acute intracranial abnormality. D/ / Madhu Estrella MD / Madhu Estrella MD Interpreting Provider: Madhu Estrella MD Echocardiogram 11/23/17 10:45 Impressions: LVEF 45-50%. Low normal to mildly reduced LV systolic function. Atypical septal motion. Mildly dilated left ventricle. Mild left ventricular diastolic dysfunction. Normal right ventricular structure and function. Mild-moderate mitral regurgitation. Mild-moderate tricuspid regurgitation. No pulmonary hypertension. Left Ventricular Wall Motion: Rest Echo Findings The apex, apical inferior, mid inferior, basal inferior, apical anterior, mid anterior, basal anterior, apical lateral, mid anterior lateral, basal anterior lateral, mid inferior lateral and basal inferior lateral [place] were hypokinetic. The apical septal, mid inferior septal, basal inferior septal, mid anterior septal and basal anterior septal [place] were dyskinetic. Findings: Study Quality * Technically adequate exam. ECG Findings * Normal sinus rhythm. Left Ventricle * Mildly dilated left ventricle. * Mild left ventricular diastolic dysfunction. * LVEF 45-50%. Right Ventricle * Normal right ventricular structure and function. Left Atrium * Moderately dilated left atrium. Right Atrium * Normal right atrial size. Mitral Valve * No mitral stenosis. * Mildly calcified mitral valve leaflets. * Mild-moderate mitral regurgitation. Aortic Valve * No aortic regurgitation. * Trileaflet aortic valve. * No aortic stenosis. Tricuspid Valve * Tricuspid valve not well visualized. * Mild-moderate tricuspid regurgitation. * Estimated RA pressure is 3 mmHg. * Estimated RVSP is 33 mmHg. * No pulmonary hypertension. Pulmonic Valve * Pulmonic valve is not well visualized. * No pulmonic stenosis. * Trace pulmonic regurgitation. Pulmonary Artery * Pulmonary artery not well visualized. Aorta * Normally sized aortic root. Pericardium * There is no pericardial effusion present. Interatrial Septum * No evidence of PFO by color Doppler. IVC * Normal IVC dimensions and inspiratory collapse. Consult Discharge Plan - Plan Referrals: Yajaira Ryan DO [Primary Care Provider] -
[2017-11-23] MEDS: traMADol 50 MG TABLET PO PRN (23:22)
[2017-11-24] MEDS: 0.9 % Sodium Chloride 1,000 ML IVC SCH (01:00)
[2017-11-24] MEDS ORDERED: Regadenoson 0.4 MG/5 ML SYRINGE IVP ONE (06:18)
[2017-11-24 07:42] LABS: Potassium 3.8 mEq/L (3.5-5.1)
[2017-11-24 07:44] LABS: Basophils % 0.6 %; Eosinophils # 0.5 K/mcL (0.0-0.6); Eosinophils % 6.9 %; Hematocrit 42.3 % (35.3-44.9); Hemoglobin 13.6 g/dL (11.5-15.4); Immature Granulocytes % 0.6 % (0-4); Immature Platelets 2.8 % (1.1-6.1); Lymphocytes # 2.1 K/mcL (0.6-4.6); Lymphocytes % 29.8 %; Mean Corpuscular HGB Conc 32.2 g/dL (31.6-35.5); Mean Corpuscular Volume 93.4 fL (83.0-100.0); Mean Platelet Volume 10.4 fL (9.4-12.4); Monocytes # 0.7 K/mcL (0.0-1.3); Monocytes % 9.2 %; Neutrophils # 3.8 K/mcL (1.6-8.9); Nucleated Red Blood Cells 0.8 /100 WBC (0); Platelet Count 246 K/mcL (140-400); Red Blood Count 4.53 M/mcL (3.82-4.97); Red Cell Distribution Width 12.9 % (11.5-14.5); Segmented Neutrophils % 52.9 %
[2017-11-24] MEDS: *HR* Rivaroxaban 15 MG TABLET PO SCH (10:00)
[2017-11-24] MEDS: Metoprolol XL (24 HR) Succ 50 MG TAB.ER.24H PO SCH (10:00)
[2017-11-24] MEDS: Magnesium Oxide 400 MG TABLET PO SCH (10:01)
[2017-11-24] MEDS: amLODIPine 5 MG TABLET PO SCH (10:01)
[2017-11-24] MEDS: *HR* Amiodarone 200 MG TABLET PO SCH (10:01)
[2017-11-24] MEDS: Loratadine 10 MG TABLET PO SCH (10:02)
--- NOTE | 2017-11-24 12:25 | Electrocardiograph Report ---
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
--- NOTE | 2017-11-24 16:25 | Internal Med Progress Note ---
Date of Encounter: 11/24/17 Time of Encounter: 09:45 - Assessment and plan (1) Chest pain Current Visit: Yes Status: Acute Assessment and plan: Pt denies chest pain today. Troponins negative. Chest x-ray shows cardiomegaly , negative for acute process. Stress test completed today, perfusion imaging showed evidence of infarct with minimal. Infarct ischemia versus hibernating myocardium infero-apical. Gated EF is 49%. There is qualitative evidence ofTID. Per stress test note, cardiology consultation team was notified. I also entered a consultation in [facility]. Echo completed today shows low normal to mildly reduced LV systolic function, atypical septal motion, mildly dilated left ventricle, mild LV DD, mild to moderate MR, [id number] TR. Continue telemetry Continue home medications. Continue amiodarone, Plavix, Imdur, Mevacor, beta santana. Pt is on Xarelto. Qualifiers: Chest pain type: unspecified Qualified Code(s): R07.9 - Chest pain, unspecified (2) DVT prophylaxis Current Visit: Yes Status: Acute Assessment and plan: Xarelto. Pt is ambulatory in room. Continue to encourage ambulation. (3) HTN (hypertension), benign Current Visit: Yes Status: Acute Assessment and plan: Well controlled. Continue current medication. Vitals per admission orders. (4) Hypothyroid Current Visit: Yes Status: Acute Assessment and plan: Continue home dose of levothyroxine. Chronic. Qualifiers: Hypothyroidism type: unspecified Qualified Code(s): E03.9 - Hypothyroidism , unspecified (5) Atrial fibrillation Current Visit: Yes Status: Chronic Assessment and plan: Rate controlled. Continue Xarelto and amiodarone. Continue telemetry. Qualifiers: Atrial fibrillation type: unspecified Qualified Code(s): I48.91 - Unspecified atrial fibrillation (6) CAD (coronary artery disease) Current Visit: Yes Status: Chronic Assessment and plan: Per patient history. Continue home medications. Continue telemetry. Stress test abnormal, cardiology has been consulted. Qualifiers: Coronary Disease-Associated Artery/Lesion type: [place] artery [place] vs. transplanted heart: [place] heart Associated angina: angina presence unspecified Qualified Code(s): I25.10 - Atherosclerotic heart disease of [place] coronary artery without angina pectoris (7) Cardiac pacemaker in situ Current Visit: Yes Status: Chronic Assessment and plan: Pacemaker placed 4-5 years ago. Monitor showing paced rhythm. (8) Hiatal hernia Current Visit: Yes Status: Chronic Assessment and plan: Patient reports hiatal hernia. She has had no symptoms. She follows with primary care and does not remember having any imaging done. Prior CT abdomen and pelvis shows hiatal hernia. Patient is now having new symptoms over the last week including chest pain and early satiety. CT abd/pelvis shows moderate hiatal hernia. Continue Omeprazole 20mg po daily, add Pepcid 20mg po daily (9) Obesity Current Visit: Yes Status: Acute Assessment and plan: Encourage lifestyle modifications, reduced calorie diet. Qualifiers: Obesity type: unspecified obesity type Obesity classification: adult class 2 (BMI 35 - 39.9) Serious obesity comorbidity presence: with serious comorbidity Body mass index: BMI 37.0-37.9 Qualified Code(s): E66.9 - Obesity, unspecified; Z68.37 - Body mass index (BMI) 37.0-37.9, adult; Z68.37 - Body mass index (BMI) 37.0-37.9, adult (10) Abnormal stress test Current Visit: Yes Status: Acute Assessment and plan: Stress showed evidence of infarct with minimal jan-infarct ischemia versus hibernating myocardiuminferior apical. Gated EF of 49%. There is qualitative evidence of TID. Cardiology has been consulted. - Time Spent With Patient less than 15 minutes - Subjective Interval history: Patient was seen and assessed at 0945 AM. Pt states that she is feeling better. She still reports some "funny feeling" in her forehead and some nausea. Will start her on Augmentin, in addition to Claritin and Flonase. She denies neck pain, blurred vision, shortness of breath, or chest pain at this time. No abdominal pain, vomiting, diarrhea. - Constitutional Vitals: Temp Pulse Resp BP Pulse Ox 97.9 F 59 14 142/75 92 11/24/17 15:46 11/24/17 15:46 11/24/17 15:46 11/24/17 15:46 11/24/17 15:46 General appearance: Present: cooperative, A&O X 3, pleasant, no acute distress, obese, answers questions appropriately - Head Head exam: Present: atraumatic, normal inspection, normocephalic - Eye Eye exam: Present: normal appearance, conjuntiva pink, sclera anicteric - Neck Neck exam general surgery: Present: supple, trachea midline. Absent: lymphadenopathy, tenderness - Respiratory Respiratory exam: Present: chest wall tenderness, CTAB. Absent: accessory muscle use, rales, respiratory distress, rhonchi, wheezes - Cardiovascular Cardiovascular exam: Present: RRR, +S1, +S2. Absent: diastolic murmur, gallop, rubs, systolic murmur - GI/Abdominal GI/Abdominal exam: Present: normal bowel sounds, soft. Absent: distended, hepatomegaly, tenderness - Extremities Exam Extremities exam: Present: normal capillary refill, normal inspection, warm, radial pulses palpable and symmetrical. Absent: calf tenderness, cyanotic, pedal edema, tenderness - Neurological Exam Neurological exam: Present: alert, oriented X3, no focal deficits. Absent: facial droop, speech deficit - Skin Skin exam: Present: dry, intact, normal color, warm. Absent: rash Internal Medicine: Result - Labs CBC & Chem 7: 11/24/17 05:54 11/24/17 05:54 Labs: Short CBC 11/24/17 Range/Units 05:54 WBC 7.2 (4.3-11.1) K/mcL Hgb 13.6 (11.5-15.4) g/dL Hct 42.3 (35.3-44.9) % Plt Count 246 (140-400) K/mcL Neutrophils # 3.8 (1.6-8.9) K/mcL BMP 11/24/17 05:54 Sodium 137 Potassium 3.8 Chloride 105 Carbon Dioxide 25 BUN 17 Creatinine 1.16 Glucose 82 Calcium 9.0 - ABG Interpretation ABG results: PT/INR, D-dimer PT 15.9 Seconds (9.4-12.1) H 11/21/17 19:14 - Impressions Impressions Abdomen/Pelvis CT 11/23/17 18:27 IMPRESSION: 1. Moderate-sized hiatal hernia. 2. No acute intra-abdominal process identified. 3. Diverticulosis without evidence for diverticulitis. 4. Severe atherosclerotic disease. D/ / Don Christine MD / Don Christine MD Interpreting Provider: Don Christine MD Consult Discharge Plan - Plan Referrals: Yajaira Ryan DO [Primary Care Provider] -
[2017-11-25] MEDS: 0.9 % Sodium Chloride 1,000 ML IVC SCH ×2 (00:03→17:57)
[2017-11-25] MEDS: Isosorbide MONOnitrate (24 HR) 60 MG TAB.ER.24H PO SCH (09:14)
[2017-11-25] MEDS: Loratadine 10 MG TABLET PO SCH (09:14)
[2017-11-25] MEDS: Metoprolol XL (24 HR) Succ 50 MG TAB.ER.24H PO SCH (09:14)
[2017-11-25] MEDS: Magnesium Oxide 400 MG TABLET PO SCH (09:15)
[2017-11-25] MEDS: *HR* Amiodarone 200 MG TABLET PO SCH (09:15)
[2017-11-25] MEDS: amLODIPine 5 MG TABLET PO SCH (09:15)
[2017-11-25] MEDS: *HR* Rivaroxaban 15 MG TABLET PO SCH (09:15)
--- NOTE | 2017-11-25 12:34 | Cardiology Consult Note ---
<Theron Horvath - Last Filed: 11/25/17 12:30> Date of Encounter: 11/25/17 Time of Encounter: 12:30 Assessment and Plan (1) Chest pain Current Visit: Yes Status: Acute C/o intermittent chest pain on friday. Known CAD. [facility] in 2011 showed 90% stenosis in the OM. Mild non-obstructive CAD otherwise. Troponin negative. EKG shows AV pacing. Stress test reviewed with patient. There was area of infarct with jan-infarct ischemia vs hybernating myocardium. There was TID. Gated EF 49%. TTE shows EF 45 -50% and WMA noted. WMA not documented on previous TTE. [facility] R/B/A discussed with patient and son-in-law. Patient is considering. Hold xarelto for possible procedure tomorrow. Continue asa, statin, and bb. Increase imdur. Qualifiers: Chest pain type: unspecified Qualified Code(s): R07.9 - Chest pain, unspecified (2) CAD (coronary artery disease) Current Visit: Yes Status: Chronic H/o CAD and previous PCI. Last [facility] 2011 showed 90%OM. Continue asa, statin, bb, imdur. Qualifiers: Coronary Disease-Associated Artery/Lesion type: [place] artery [place] vs. transplanted heart: [place] heart Associated angina: angina presence unspecified Qualified Code(s): I25.10 - Atherosclerotic heart disease of [place] coronary artery without angina pectoris (3) Atrial fibrillation Current Visit: Yes Status: Chronic Telemetry shows AV pacing. Avg HR 61 bpm. Hold xarelto for procedure. Creatinine clearance is 57. Recommended dose of xarelto for afib is 20 mg daily. Restart after procedure. Qualifiers: Atrial fibrillation type: unspecified Qualified Code(s): I48.91 - Unspecified atrial fibrillation Discussion w patient/family: The assessment and plan as outlined above was discussed with the patient and/or family members who expressed understanding and agreement. All questions were answered. Thank you for involving us in the care of your patient. Please call with any questions. History of Present Illness Consult date: 11/25/17 Requesting physician: Julianne Thomason Consult reason: Abnormal stress Chief complaint: Chest pain History of present illness: Ms. Rutherford is a 77 year old female with past medical history of CAD s/p PCI, afib on xarelto,PPM, HTN, and hiatal hernia who presented with the c/o chest burning across her chest and abdominal pain last friday. The chest pain started while sitting. She denies aggravating factors. She took NTG at home without relief. She presented to the ED and was given NTG with relief of her pain. She denies SOB or palpitations. Denies orthopnea, PND, or edema. Cardiology consulted for abnormal stress test. Past Med Surg Social Fam HX - Past Medical History Attestation: Yes The following information was validated with the patient. Medical history: atrial fibrillation, CHF, coronary artery disease, hyperlipidemia, hypertension, thyroid disease, other Psychiatric history: no psych history - Past Surgical History Surgical History: appendectomy, cholecystectomy, hysterectomy - Social History Smoking Status: Former smoker Smokeless Tobacco Status: No Alcohol use: none Drug use: none - Family History Mother Living Status: Hx Family Cancer: Yes Hx Family GI Disorders: Yes (GI Cancer) Medications and Allergies Albuterol Neb [Proventil Neb] 2.5 mg IH Q4HR PRN #30 vial.neb 11/04/15 [Rx] Ipratropium Neb [Atrovent Neb] 0.5 mg IH Q6H PRN #30 inhsol 11/04/15 [Rx] Amiodarone HCl [Pacerone] 200 mg PO DAILY 12/14/15 [History] Amlodipine Besylate [Amlodipine Besylate] 10 mg PO DAILY 12/14/15 [History] Clopidogrel [Plavix] 75 mg PO DAILY 12/14/15 [History] Isosorbide MONOnitrate (24 HR) [Imdur] 60 mg PO DAILY 12/14/15 [History] Levothyroxine Sodium [Tirosint] 100 mg PO QAM 12/14/15 [History] Losartan Potassium [Cozaar] 100 mg PO DAILY 12/14/15 [History] Magnesium Oxide [Magnesium] 400 mg PO DAILY 12/14/15 [History] Metoprolol Succinate [Metoprolol Succinate] 50 mg PO DAILY 12/14/15 [History] Ondansetron HCl [Zofran] 4 mg PO DAILY PRN 12/14/15 [History] Pantoprazole Sodium [Protonix] 40 mg PO BID 12/14/15 [History] Potassium Chloride [Potassium Chloride] 10 meq PO DAILY 12/14/15 [History] Rivaroxaban [Xarelto] 15 mg PO DAILY 12/14/15 [History] Tramadol HCl [Ultram] 50 mg PO QID PRN 11/21/17 [History] Diclofenac Sodium [Diclo Gel] 1 each TP Q6HR PRN 11/22/17 [History] Lovastatin [Mevacor] 20 mg PO DAILY 11/22/17 [History] 3 Allergy/AdvReac Type Severity Reaction Status Date / Time ibuprofen Allergy Dizziness Verified 11/22/17 15:58 Sulfa (Sulfonamide Allergy Rash Verified 11/22/17 15:58 Antibiotics) All Systems Review: The remainder of the systems were reviewed and are negative Physical Examination Vital Signs, Last 4 Hours Temp Pulse Resp BP Pulse Ox 11/25/17 10:55 99.1 F 68 16 132/65 91 General: Conversant, No Apparent Distress HEENT: Atraumatic, Normocephaly, Mucus Membranes Moist Neck: No JVD, Normal carotid pulses Cardiac: Reg Rate and Rhythm, Normal S1 and S2, No Murmur Lungs: Normal Breath Sounds, No Wheeze, Rales, Rhonchi Neuro: Alert and responsive, No focal deficits noted Abdomen: Soft, Non-Tender Skin: No rashes noted on visualized skin Musculoskeletal: No Chest Wall Tenderness Extremities: No Clubbing, No Cyanosis, No Edema, Normal Pulses Results 11/24/17 05:54 11/24/17 05:54 - Imaging and Cardiology Echo: report reviewed Cardiac cath: report reviewed - EKG Interpretation EKG results cardiology: personally reviewed Consult Discharge Plan - Plan Referrals: Yajaira Ryan DO [Primary Care Provider] - <Camille Lopes - Last Filed: 11/25/17 15:53> Date of Encounter: 11/25/17 - Attending Attestation I have personally performed a face to face evaluation on this patient. I have reviewed and agree with the care plan. History and Exam by me shows: 77-year-old female with no significant past cardiac history presents with chest pain found to have an abnormal stress test with TID and jan-infarct ischemia involving the inferior territory. Ejection fraction is 40-45% on echocardiogram. Risks benefits and alternatives discussed patient and she agrees to proceed with a left heart catheter Assessment and Plan Discussion w patient/family: The assessment and plan as outlined above was discussed with the patient and/or family members who expressed understanding and agreement. All questions were answered. Thank you for involving us in the care of your patient. Please call with any questions. History of Present Illness History of present illness: Ms. Rutherford is a 77 year old female All Systems Review: The remainder of the systems were reviewed and are negative Results 11/24/17 05:54 11/24/17 05:54
--- NOTE | 2017-11-25 17:01 | Internal Med Progress Note ---
Date of Encounter: 11/25/17 Time of Encounter: 16:57 - Assessment and plan (1) Chest pain Current Visit: Yes Status: Acute Assessment and plan: presented with complaints of chest pain. Serial troponins negative, CXR with cardiomegaly otherwise nonacute. Stress test with evidence of infarct with minimal jan-infarct ischemia versus hibernating myocardium. Evaluated by cardiology who recommended LHC however patient undecided at this time. Waiting to discuss with her daughter. Cont to monitor on tele; Continue amiodarone, Plavix, Imdur, Mevacor, beta santana. Holding Xarelto in light of possible LHC. Cardiology following Qualifiers: Chest pain type: unspecified Qualified Code(s): R07.9 - Chest pain, unspecified (2) CAD (coronary artery disease) Current Visit: Yes Status: Chronic Assessment and plan: Per patient history. Continue home medications. Continue telemetry. Stress test abnormal as noted above. Cardiology following. Qualifiers: Coronary Disease-Associated Artery/Lesion type: [place] artery [place] vs. transplanted heart: [place] heart Associated angina: angina presence unspecified Qualified Code(s): I25.10 - Atherosclerotic heart disease of [place] coronary artery without angina pectoris (3) Atrial fibrillation Current Visit: Yes Status: Chronic Assessment and plan: per hx. rate controlled. Continue home BB, amiodarone. Holding several toe with possible left heart catheter. Qualifiers: Atrial fibrillation type: unspecified Qualified Code(s): I48.91 - Unspecified atrial fibrillation (4) Cardiac pacemaker in situ Current Visit: Yes Status: Chronic Assessment and plan: Pacemaker placed 4-5 years ago. Monitor showing paced rhythm. (5) Hypothyroid Current Visit: Yes Status: Acute Assessment and plan: per hx. Cont home levothyroxine Qualifiers: Hypothyroidism type: unspecified Qualified Code(s): E03.9 - Hypothyroidism , unspecified (6) HTN (hypertension), benign Current Visit: Yes Status: Acute (7) Hiatal hernia Current Visit: Yes Status: Chronic Assessment and plan: Intermatic with chest pain and early satiety. CT abd/pelvis shows moderate hiatal hernia. Continue Omeprazole 20mg po daily, add Pepcid 20mg po daily (8) Obesity Current Visit: Yes Status: Acute Assessment and plan: Encourage lifestyle modifications, reduced calorie diet. Qualifiers: Obesity type: unspecified obesity type Obesity classification: adult class 2 (BMI 35 - 39.9) Serious obesity comorbidity presence: with serious comorbidity Body mass index: BMI 37.0-37.9 Qualified Code(s): E66.9 - Obesity, unspecified; Z68.37 - Body mass index (BMI) 37.0-37.9, adult; Z68.37 - Body mass index (BMI) 37.0-37.9, adult (9) DVT prophylaxis Current Visit: Yes Status: Acute Assessment and plan: heparin - Time Spent With Patient Total time spent is greater than 50% in coordination of care (as documented) at patient's floor/unit and/or counseling patient: - Subjective Interval history: Seen and examined at bedside. Patient is new to me, information obtained from chart review and patient report. Says she overall feels better, no chest pain or shortness of breath. She is still undecided on left heart catheterization; says daughter will be here this evening and she will discuss with her daughter at that time. - Constitutional Vitals: Temp Pulse Resp BP Pulse Ox 98.6 F 61 16 130/68 94 11/25/17 16:01 11/25/17 16:01 11/25/17 16:01 11/25/17 16:01 11/25/17 16:01 General appearance: Present: cooperative, A&O X 3, pleasant, no acute distress, obese, answers questions appropriately - Head Head exam: Present: atraumatic, normocephalic - Eye Eye exam: Present: PERRL, conjuntiva pink, sclera anicteric Pupils: Present: PERRL - Neck Neck exam general surgery: Present: supple, trachea midline. Absent: lymphadenopathy - Respiratory Respiratory exam: Present: CTAB. Absent: accessory muscle use, rales, rhonchi, wheezes - Cardiovascular Cardiovascular exam: Present: RRR, +S1, +S2. Absent: diastolic murmur, gallop, rubs, systolic murmur - GI/Abdominal GI/Abdominal exam: Present: normal bowel sounds, soft, no peritoneal signs. Absent: distended, tenderness - Extremities Exam Extremities exam: Present: warm, radial pulses palpable and symmetrical. Absent : calf tenderness, cyanotic, pedal edema - Neurological Exam Neurological exam: Present: CN II-XII intact, oriented X3, no focal deficits. Absent: pronater drift, facial droop, speech deficit - Skin Skin exam: Present: dry, intact Internal Medicine: Result - Labs CBC & Chem 7: 11/24/17 05:54 11/24/17 05:54 - ABG Interpretation ABG results: PT/INR, D-dimer PT 15.9 Seconds (9.4-12.1) H 11/21/17 19:14 Consult Discharge Plan - Plan Referrals: Yajaira Ryan DO [Primary Care Provider] -
[2017-11-25] MEDS: traMADol 50 MG TABLET PO PRN (21:19)
[2017-11-26] MEDS ORDERED: Acetaminophen 325 MG TABLET PO PRN (01:26)
--- NOTE | 2017-11-26 08:36 | Event Note ---
Date of Encounter: 11/26/17 Time of Encounter: 08:00 - Cardiology Event Note Seen and examined. No chest pain overnight. Discussed LHC with possible PCI this AM (see cardiology consult note); patient is agreeable to proceed, alternatives, risks, and benefits discussed. Last dose of Xarelto (afib) 11/25/17 ~9AM. NPO except medications, plan for LHC thafis afternoon. Further recommendations to follow. Discussed and reviewed with Dr. Lopes. TTE 11/24/17 EF 45-50%, mild dilated LV, mild LVDD, mild-moderate MR/TR. Regadenoson Nuclear Stress Perfusion imaging showed evidence of infarct with minimal jan infarct ischemia versus hibernating myocardium - inferoapical. SDS 1 with SSS 19 Pharmacologic ECG was non diagnostic for ischemia. Patient had no chest pain with stress. No arrhythmias noted with stress. Gated EF = 49%. There is qualitative evidence of TID, which can be a marker of balanced ischemia from severe left main or multivessel CAD TID ratio 1.35.
[2017-11-26] MEDS: Loratadine 10 MG TABLET PO SCH (09:14)
[2017-11-26] MEDS: Isosorbide MONOnitrate (24 HR) 60 MG TAB.ER.24H PO SCH (09:15)
[2017-11-26] MEDS: Magnesium Oxide 400 MG TABLET PO SCH (09:15)
[2017-11-26] MEDS: *HR* Amiodarone 200 MG TABLET PO SCH (09:15)
[2017-11-26] MEDS: amLODIPine 5 MG TABLET PO SCH (09:16)
[2017-11-26] MEDS: Metoprolol XL (24 HR) Succ 50 MG TAB.ER.24H PO SCH (09:16)
[2017-11-26] MEDS: 0.9 % Sodium Chloride 1,000 ML IVC SCH ×2 (09:51→23:30)
[2017-11-26] MEDS ORDERED: 0.9 % Sodium Chloride 1,000 ML ONE (13:14)
[2017-11-26] MEDS ORDERED: *HR* Heparin 10,000 UNIT/10 ML VIAL ONE (13:14)
[2017-11-26] MEDS ORDERED: Heparin 1,000 UNITS/500 mL 500 ML ONE (13:14)
[2017-11-26] MEDS ORDERED: Nitroglycerin 1,000 MCG/10 ML VIAL IV ONE (13:15)
[2017-11-26] MEDS ORDERED: ISOVUE-370 200 ML INFUS..BTL IV ONE ×2 (13:15→15:39)
[2017-11-26] MEDS ORDERED: *HR* FentaNYL (PF) 100 MCG/2 ML VIAL ONE (14:47)
[2017-11-26] MEDS ORDERED: *HR* Midazolam HCl 2 MG/2 ML VIAL ONE (14:47)
--- NOTE | 2017-11-26 15:08 | Pre-Sedation Evaluation ---
Pre-sedation evaluation - Pre-sedation checklist Date of procedure: 11/26/17 Procedure: [facility] Recent Vitals: Last Vital Signs Temp 98.0 F 11/26/17 06:58 Pulse 65 11/26/17 06:58 Resp 14 11/26/17 06:58 BP 136/69 11/26/17 06:58 Pulse Ox 93 11/26/17 06:58 H&P (including ROS) documented in medical record: Yes Previous reaction to sedatives/anesthetics: No Dietary Status: NPO after Midnight Dentition: No loose teeth or bridges ASA Classification *see protocol: CLASS II-Mild systemic disease Plan of Care: Pt appropriate candidate for procedure/moderate/conscious sedation , Risks/benefits of procedure/sedation discussed w/ patient/family
[2017-11-26] MEDS ORDERED: Ondansetron 4 MG/2 ML VIAL IVP PRN (16:02)
--- NOTE | 2017-11-26 16:16 | Invasive Diagnostic Lab Proc ---
Name: Pinky Rutherford Date of Study: 11/26/2017 Date: 1940 Ht: 62.0in Medical Record#: [id number] Age: 77 Wt: 207.46lb Gender: Female BSA: 1.94 Order #: [id number] BMI: 37.93 Physicians Procedure Physician: Lavelle Alberto MD, [facility] Referring MD: Referring MD: Staff Name Position Time In Lita Pruett RT Monitor 02:53 PM Sharla Taylor RT (R) Scrub 02:53 PM Zeus Mann RN Inspector Watch Parts 02:53 PM Indications Indication Coronary Artery Disease Procedures Performed Procedure L HRT ARTERY/VENTRICLE ANGIO PRQ CARD JIMENA STENT W/ANGIO 1 VSL Pre-Procedure Checklist Informed consent is complete signed and on chart. H&P is on chart. ID band is on and ID verified with patient. Patient NPO for procedure The procedure was described for the patient and questions were answered. Blood Pressure: 126/63 ECG is on chart. Rhythm: Paced Plan of Care Patient will tolerate the procedure without complications. Adequate level of comfort will be maintained. Hemodynamics will remain stable Patient will recover from procedure without complications. Respiratory function will be maintained. Cardiac rhythm will remain stable. Patient temperature will be maintained. Patient and/or family have verbalized understanding of the procedure. Patient Education Chief Complaint/Reason for Test: Cardiac Cath Developmental Category: Geriatric (65+ years) Developmentally Appropriate for Age: Yes Learning Barriers: None Education Needs: Procedure Education Method: Verbal Information Taught: Cardiac Cath Educational Evaluation: Able to repeat information Intravenous Access Time IV Size Location DC'd Fluid/Drip Rate Units RN 02:56 PM Started with 22g 1 " Rt Wrist 0.9NaCl 25 ml/hr Lino Stringer RN Allergies SULFA,ASA ibuprofen Naproxen SULFA,NSAIDS Vital Signs Time BP (mmHg) HR (bpm) O2 Sat. RR (bpm) LOC 02:55 PM / % 5 = Fully awake and oriented or at pre-proc level 02:55 PM / % 4 = Oriented but drowsy 03:11 PM / % 4 = Oriented but drowsy 03:26 PM / % 4 = Oriented but drowsy 02:56 PM 138 / 68 59 97 % 03:01 PM 126 / 63 59 96 % 03:06 PM 124 / 62 60 96 % 03:11 PM 120 / 65 57 96 % 03:16 PM 134 / 71 60 96 % 03:21 PM 133 / 64 59 98 % 03:26 PM 136 / 68 60 97 % 03:31 PM 137 / 68 60 97 % 03:36 PM 141 / 72 59 98 % 03:41 PM 150 / 71 60 97 % 03:46 PM 136 / 63 60 98 % 03:51 PM 140 / 77 60 97 % Procedural Medications Time Medication Dose Units Method Given By 02:54 PM Oxygen 2 L/min nasal cannula Zeus Mann RN 02:54 PM Versed 2 mg Intravenous Zeus Mann RN 02:54 PM Fentanyl 50 mcg Intravenous Zeus Mann RN 03:14 PM Lidocaine 2% 20 ml Subcutaneous Lavelle Alberto MD, FACC 03:24 PM Heparin 4000 units Intravenous Zeus Mann RN 03:43 PM Nitroglycerin 200 mcg Intracoronary Lavelle Alberto MD 03:54 PM Plavix 300 mg Orally Zeus Mann RN ASA Classification: CLASS II- Mild systemic disease (i.e. well-controlled diabetes, hypertension, asthma, cigarette smoking) Kulwant Score Preprocedure Postprocedure Activity 2- Moves 4 extremities sustained head lift Activity 2- Moves 4 extremities sustained head lift Circulation 2- SBP +/= 20 points of pre-anesthetic level Circulation 2- SBP +/= 20 points of pre-anesthetic level Consciousness 2- Awake and alert oriented x 3 Consciousness 2- Awake and alert oriented x 3 O2 Saturation 2- Able to maintain O2 satruation of 92% on room air O2 Saturation 2- Able to maintain O2 satruation of 92% on room air Respiratory 2- Able to deep breathe and cough well Respiratory 2- Able to deep breathe and cough well Total Score 10 Total Score 10 Contrast Agent: Isovue Diagnostic Contrast: 101 ml Total Contrast: 101 ml Fluoro Dose: 468 mGy Activated Clotting Time Time Seconds to Clot 03:54 PM 177 Procedure Log Time Note Enter By 02:53 PM Pt 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 :54 PM Case Delayed No 54 PM Hair removed from procedure site in holding area using clippers. Bilateral groin prepped with Chloraprep by Lita Pruett, then patient was draped. Skin intact. : PM Physician arrived 14:54 :54 PM ASA Class CLASS II- Mild systemic disease (i.e. well-controlled diabetes, hypertension, asthma, cigarette smoking) 54 PM Meet and greet completed :54 PM Sign in performed according to hospital policy. 54 PM Procedure start 14:54 54 PM Time: 14:54 Oxygen on at 2 L/min per nasal cannula by Zeus Mann RN 54 PM Time: 14:54 Versed 2 mg Intravenous Given by Zeus Mann RN juan c 54 PM Time: 14:54 Fentanyl 50 mcg Intravenous Given by Zeus Mann RN felipe 55 PM Time: 14:55 Patient comfortable and pain free: Yes PM Time: 14:55LOC: 5 = Fully awake and oriented or at pre-proc level 02:55 PM Clinical Presentation: Unstable angina 02:55 PM CathStat 02:55 PM Vitals capture started with the following parameters, Patient=Adult, Interval=5 min, Initial Hodmlazb=385 mmHg, Deflation Rate=3 mmHg, Cuff placed on Right Arm 02:56 PM HR=59 bpm, KGHR=081/68 mmhg, SpO2=97.0 % 02:57 PM Pressure channel 1 zeroed. 02:58 PM Pressure channel 1 zeroed. 03:01 PM HR=59 bpm, DTOU=800/63 mmhg, SpO2=96.0 % 03:06 PM HR=60 bpm, AUQN=013/62 mmhg, SpO2=96.0 % 03:11 PM Time: 14:55LOC: 4 = Oriented but drowsy 03:11 PM Time: 14:55 Patient comfortable and pain free: Yes [email or web address] 03:11 PM HR=57 bpm, CZYI=530/65 mmhg, SpO2=96.0 % 03:12 PM Time out performed according to hospital policy 03:14 PM Time: 15:14 20 ml Lidocaine 2% to right groin Subcutaneous Given by Lavelle Alberto MD, [facility] kkner 03:16 PM HR=60 bpm, BWYH=112/71 mmhg, SpO2=96.0 % 03:18 PM Access obtained by percutaneous puncture. 5Fr 10cm Terumo Chilmark sheath placed in right Femoral artery. [id number] [email or web address] 03:18 PM Bolus angiogram of right Femoral complete: 4 ml/sec for a total of 7 mls kkallner 03:18 PM Recorded Pressure: Ao, HR=59, Condition=Condition 1 (Aorta) Ao 187/36/90 03:19 PM 5Fr FL 4 catheter inserted over the wire [facility] kkner 03:19 PM wire removed kkallner 03:19 PM LCA angiography performed in multiple views. kkner 03:20 PM Recorded Pressure: Ao, HR=60, Condition=Condition 1 (Aorta) Ao 128/68/93 03:21 PM Catheter removed kkallner 03:21 PM 5Fr FR 4 catheter inserted over the wire DN kkallner 03:21 PM wire removed kkallner 03:21 PM RCA angiography performed in multiple views. [email or web address] 03:21 PM HR=59 bpm, EOXX=580/64 mmhg, SpO2=98.0 % 03:22 PM Recorded Pressure: Ao, HR=60, Condition=Condition 1 (Aorta) Ao 127/73/96 03:23 PM Catheter removed kkallner 03:23 PM 5Fr Pigtail catheter inserted over the wire DN kkner 03:23 PM wire removed kkner 03:23 PM Catheter selectively placed in left ventricle kkallner 03:24 PM Pressure channel 1 zeroed. 03:24 PM Recorded Pressure: LV, HR=67, Condition=Condition 1 (Left Ventricle) LV 135/9/17 03:24 PM Recorded Pressure: LV, Ao, HR=76, Condition=Condition 1 (Left Ventricle) LV 101/-2/53, (Aorta) Ao ?/?/? 03:25 PM Time: 15:24 Heparin 4000 units Intravenous Given by Zeus Mann RN [email or web address] 03:25 PM LV pressures recorded kkallner 03:25 PM 5Fr JL4 Convey guide catheter was used to cannulate the PCI vessel successfully. reused? No kkallner 03: PM wire removed kkallner : PM Time: 15:11 Patient comfortable and pain free: Yes [email or web address] 03:26 PM Time: 15:11LOC: 4 = Oriented but drowsy kkallner 03:26 PM HR=60 bpm, CNQO=917/68 mmhg, SpO2=97.0 % 03:26 PM .014 [place] 180cm guide wire across target lesion- successful. reused? No kkallner 03:27 PM Recorded Pressure: Ao, HR=59, Condition=Condition 1 (Aorta) Ao 124/55/82 03:28 PM Coronary Dominance: right [email or web address] 03:28 PM Lesion found in Mid LAD. Pre Stenosis: 90 Pre JEANCARLOS Flow: 3 [email or web address] 03:28 PM Lesion found in 1st Diagonal. Pre Stenosis: 90 Pre JEANCARLOS Flow: [email or web address] 03:28 PM Lesion found in 2nd Diagonal. Pre Stenosis: 50 Pre JEANCARLOS Flow: [email or web address] 03:28 PM Lesion found in Mid Circumflex. Pre Stenosis: 20 Pre JEANCARLOS Flow: [email or web address] 03:28 PM Left Main Coronary Artery with 0% stenosis kkallner 03:28 PM Mid/Distal Left Anterior Descending Coronary Artery and diagonal branches with 90% stenosis. If graft is supplying this area, 0 % stenosis kkallner 03:28 PM Circumflex, Obtuse Marginal, Left Posterior Descending, and Left Posterolateral Coronary Arteries with 20 % stenosis. If graft is supplying this area, 0 % stenosis kkallner 03:28 PM Right Coronary, Right Posterior Descending Arteries with Right Posterolateral and Acute Marginal branches with 0 % stenosis. If graft is supplying this area, 0 % stenosis kkallner 03:28 PM Ramus with 0% stenosis. If graft is supplying this area, 0 % stenosis kkallner 03:29 PM 2.0 mm x 12 mm Emerge Monorail balloon across target lesion- successful. reused? No kkallner 03:31 PM Recorded Pressure: Ao, HR=60, Condition=Condition 1 (Aorta) Ao 104/66/85 03:31 PM HR=60 bpm, QVMX=265/68 mmhg, SpO2=97.0 % 03:31 PM Balloon inflated @ 14 apollo for 18 seconds kkallner 03:32 PM Balloon catheter removed intact. [email or web address] 03:33 PM 2.5mm x 12mm Synergy drug-eluting stent across target lesion- successful Lot #[id number] kkallner 03:34 PM Stent removed intact. kkallner 03:36 PM 2.5 mm x 12mm NC Trek Rx balloon across target lesion- successful. reused? No kkallner 03:36 PM Balloon inflated @ 15 apollo for 13 seconds kkallner 03:36 PM HR=59 bpm, GWEW=179/72 mmhg, SpO2=98.0 % 03:36 PM Lesion found in Proximal LAD. Pre Stenosis: 70 Pre JEANCARLOS Flow: [email or web address] 03:37 PM Balloon catheter removed intact. [email or web address] 03:37 PM 2.5mm x 16mm Synergy drug-eluting stent across target lesion- successful Lot #[id number]. kkallner 03:39 PM Stent deployed @ 12 apollo for 24 seconds kkallner 03:40 PM Stent delivery system removed intact. kkallner 03:41 PM 2.5 x 12 synergy reinserted kkallner 03:41 PM Time: 15:26 Patient comfortable and pain free: Yes kkallner 03:41 PM HR=60 bpm, FSJQ=822/71 mmhg, SpO2=97.0 % 03:42 PM Stent deployed @ 14 apollo for 20 seconds kkallner 03:43 PM Time: 15:43 Nitroglycerin 200 mcg Intracoronary Given by Lavelle Alberto MD kkallner 03:44 PM Stent delivery system removed intact. kkallner 03:44 PM 2.75 mm x 8mm NC Trek Rx balloon across target lesion- successful. reused? No kkallner 03:44 PM Balloon inflated @ 18 apollo for 20 seconds kkallner 03:45 PM Balloon catheter removed intact. kkallner 03:45 PM wire removed kkallner 03:46 PM wire and catheter removed kkallner 03:46 PM ACT drawn kkallner 03:46 PM HR=60 bpm, SRSW=518/63 mmhg, SpO2=98.0 % 03:51 PM HR=60 bpm, RNKM=693/77 mmhg, SpO2=97.0 % 03:54 PM Time: 15:54 Plavix 300 mg Orally Given by Zeus Mann RN kkallner 03:54 PM At 15:54 the ACT was 177 seconds. [email or web address] 03:54 PM Procedure completed at 15:54 [email or web address] 03:54 PM Did you address JEANCARLOS flow and Dominance? Yes kkallner 03:55 PM Sign out completed: Radiation Dose 467.56 mGy Fluoro Time: 8.8 Isovue 370 - 200ml contrast 101 ml given by Lavelle Alberto MD, [facility]. Complications: NoneCardiac Rehab Consult needed: YesConfirmed administered medications: Yes kkallner 03:55 PM Isovue 370 - 200ml,1 Bottle(s) used. kkallner 03:55 PM Sheath left in place to be pulled on floor/holding area kkallner 03:55 PM Estimated Blood Loss: minimal kkallner 03:56 PM Post ECG Paced kkallner 03:56 PM Post Blood Pressure 136/68 kkallner 03:56 PM 15:56 Post Pulses Bilateral DP 2+ kkallner 03:56 PM 15:56 Post Pulses Bilateral PT 1+ kkallner 03:56 PM Information taught Cardiac Cath and PCI kkallner 03:56 PM Education needs Procedure, Plan of Care, and Responsibilities of Patient in Care kkallner 03:56 PM Learning barriers :None kkallner 03:56 PM Education Methods Verbal kkallner 03:56 PM Education evaluation Able to repeat information kkallner 03:56 PM Site status No bleeding/hematoma - Rt Groin as reported by Sharla Taylor RT (R) at 15:56 kkallner 03:56 PM Opsite applied kkallner 03:57 PM Plavix, Effient or Brilinta given Yes kkallner 03:57 PM Patient out of room: 15:57 kkallner 03:57 PM Complications: None kkallner 03:58 PM Fluoro Time: 8.8 kkallner 03:58 PM Isovue 370 - 200ml contrast 101 ml given by . kkallner 03:58 PM Radiation Dose 467.56 mGy kkallner 03:58 PM Family placed in consult room. [email or web address] 04:03 PM Report given to Toya TEMPLE Pt taken to 2N Room #1. 16:03 [email or web address] 04:04 PM Proximal Left Anterior Descending Coronary Artery with 70% stenosis. If graft is supplying this territory, 0 % stenosis. kkallner Complications Complication None None Hemodynamics Pressures Site Systolic/A Wave Diastolic/V Wave Mean AO 187 36 90 AO 128 68 93 AO 127 73 96 LV 135 9 17 LV 101 -2 53 AO AO 124 55 82 AO 104 66 85 Post Procedure Information Blood Pressure: 136/68 mmHg Rhythm: Paced Post procedural instructions were given Site Checks Time Location Status Staff Sheath In? Note 03:56 PM Rt Groin No bleeding/hematoma Sharla Taylor RT (R) Pulses Time Site Pre-Procedure Post-Procedure Note 3:56:00 PM Bilateral DP 2+ 3:56:00 PM Bilateral PT 1+ Updated by Lita Pruett RT (R) on 11/26/2017 4:07:42 PM electronically signed on 11/26/2017 4:08:30 PM with status of Final
--- NOTE | 2017-11-26 16:52 | Internal Med Progress Note ---
Date of Encounter: 11/26/17 Time of Encounter: 16:52 - Assessment and plan (1) Chest pain Current Visit: Yes Status: Acute Assessment and plan: presented with complaints of chest pain. Serial troponins negative, CXR with cardiomegaly otherwise nonacute. Stress test with evidence of infarct with minimal jan-infarct ischemia versus hibernating myocardium. 11/26/17 [facility] with successful PCI to proximal LAD. Cont home Plavix for now. Anticipating cardiology will add dual antiplatelet therapy. Cont post heart cath care per protocol. Cardiology following. Qualifiers: Chest pain type: unspecified Qualified Code(s): R07.9 - Chest pain, unspecified (2) CAD (coronary artery disease) Current Visit: Yes Status: Chronic Assessment and plan: Per patient history. Continue home plavix, BB, statin, nitrate. Continue telemetry. Plan as noted above. Cardiology following. Qualifiers: Coronary Disease-Associated Artery/Lesion type: [place] artery [place] vs. transplanted heart: [place] heart Associated angina: angina presence unspecified Qualified Code(s): I25.10 - Atherosclerotic heart disease of [place] coronary artery without angina pectoris (3) Atrial fibrillation Current Visit: Yes Status: Chronic Assessment and plan: per hx. rate controlled. Continue home BB, amiodarone. Xarelto on hold for [facility]. Defer resuming Xarelto to Cardiology Qualifiers: Atrial fibrillation type: unspecified Qualified Code(s): I48.91 - Unspecified atrial fibrillation (4) Cardiac pacemaker in situ Current Visit: Yes Status: Chronic Assessment and plan: Pacemaker placed 4-5 years ago. Monitor showing paced rhythm. (5) Hypothyroid Current Visit: Yes Status: Acute Assessment and plan: per hx. Cont home levothyroxine Qualifiers: Hypothyroidism type: unspecified Qualified Code(s): E03.9 - Hypothyroidism , unspecified (6) HTN (hypertension), benign Current Visit: Yes Status: Acute Assessment and plan: per hx. Cont home BP medication. Monitor BP and titrate PRN (7) Hiatal hernia Current Visit: Yes Status: Chronic Assessment and plan: Intermatic with chest pain and early satiety. CT abd/pelvis shows moderate hiatal hernia. Continue Omeprazole 20mg po daily, add Pepcid 20mg po daily (8) Obesity Current Visit: Yes Status: Acute Assessment and plan: Encourage lifestyle modifications, reduced calorie diet. Qualifiers: Obesity type: unspecified obesity type Obesity classification: adult class 2 (BMI 35 - 39.9) Serious obesity comorbidity presence: with serious comorbidity Body mass index: BMI 37.0-37.9 Qualified Code(s): E66.9 - Obesity, unspecified; Z68.37 - Body mass index (BMI) 37.0-37.9, adult; Z68.37 - Body mass index (BMI) 37.0-37.9, adult (9) DVT prophylaxis Current Visit: Yes Status: Acute Assessment and plan: SCDs - Time Spent With Patient Total time spent is greater than 50% in coordination of care (as documented) at patient's floor/unit and/or counseling patient: - Subjective Interval history: Seen and examined at bedside; she just returned to room from left heart catheterization. Complaining of generalized pain which she thinks is secondary to her fibromyalgia however worse and now worsening generalized pain and right groin pain. Family at bedside and requesting something for anxiety, requesting analgesic topical rub for back pain and also requesting patient to be allowed to eat. Patient denies chest pain or shortness of breath. - Constitutional Vitals: Temp Pulse Resp BP Pulse Ox 98.8 F 59 18 153/81 92 11/26/17 16:21 11/26/17 16:21 11/26/17 16:21 11/26/17 16:21 11/26/17 16:21 General appearance: Present: cooperative, A&O X 3, pleasant, no acute distress, obese, answers questions appropriately - Head Head exam: Present: atraumatic, normocephalic - Eye Eye exam: Present: PERRL, conjuntiva pink, sclera anicteric Pupils: Present: PERRL - Neck Neck exam general surgery: Present: supple, trachea midline. Absent: lymphadenopathy - Respiratory Respiratory exam: Present: CTAB. Absent: accessory muscle use, rales, rhonchi, wheezes - Cardiovascular Cardiovascular exam: Present: RRR, +S1, +S2. Absent: diastolic murmur, gallop, rubs, systolic murmur - GI/Abdominal GI/Abdominal exam: Present: normal bowel sounds, soft, no peritoneal signs. Absent: distended, tenderness - Extremities Exam Extremities exam: Present: warm, radial pulses palpable and symmetrical. Absent : calf tenderness, cyanotic, pedal edema Additional comments: Right groin with cardiac sheath in place - Neurological Exam Neurological exam: Present: CN II-XII intact, oriented X3, no focal deficits. Absent: pronater drift, facial droop, speech deficit - Skin Skin exam: Present: dry, intact Internal Medicine: Result - Labs CBC & Chem 7: 11/24/17 05:54 11/24/17 05:54 - ABG Interpretation ABG results: PT/INR, D-dimer PT 15.9 Seconds (9.4-12.1) H 11/21/17 19:14 Consult Discharge Plan - Plan Referrals: Yajaira Ryan DO [Primary Care Provider] -
[2017-11-26] MEDS: *HR* HYDROcodone/Acet 5/325 mg TABLET PO PRN ×2 (17:14→21:16)
[2017-11-26] MEDS: traMADol 50 MG TABLET PO PRN ×2 (18:50→22:58)
[2017-11-26] MEDS ORDERED: *HR* Atropine Sulfate 1 MG/10 ML SYRINGE ONE (21:39)
[2017-11-27 05:21] LABS: Hemoglobin 13.3 g/dL (11.5-15.4); Mean Corpuscular HGB Conc 32.4 g/dL (31.6-35.5); Mean Corpuscular Volume 92.3 fL (83.0-100.0); Platelet Count 226 K/mcL (140-400); Red Blood Count 4.44 M/mcL (3.82-4.97); Red Cell Distribution Width 12.8 % (11.5-14.5)
[2017-11-27 05:29] LABS: BUN/Creatinine Ratio 17 (6-26); Blood Urea Nitrogen 15 mg/dL (8-23); Calcium 8.8 mg/dL (8.6-10.3); Carbon Dioxide 25 mEq/L (23-29); Chloride 110 mEq/L (98-107); Chol/HDL Ratio 2.5 (0-4.9); Cholesterol 135 mg/dL (< 200); Glucose 95 mg/dL (70-105); HDL Cholesterol 54 mg/dL (40-59); LDL Cholesterol,Calculated 72 mg/dL (0-99); Osmolality,Calculated 285 (280-300); Potassium 3.8 mEq/L (3.5-5.1); Sodium 137 mEq/L (136-145); Triglycerides 44 mg/dL (< 150); eGFR For African Americans > 60 (> 60); eGFR For Non-African Americans > 60 (> 60)
[2017-11-27] MEDS: Ondansetron ODT 4 MG TAB.RAPDIS PO PRN (06:37)
[2017-11-27 08:46] LABS: Estimated Average Glucose 111 mg/dl; Hemoglobin A1C 5.5 %
[2017-11-27] MEDS: Aspirin Enteric Coated 81 MG Tablet PO SCH (08:59)
[2017-11-27] MEDS: amLODIPine 5 MG TABLET PO SCH (08:59)
[2017-11-27] MEDS: Isosorbide MONOnitrate (24 HR) 60 MG TAB.ER.24H PO SCH (08:59)
[2017-11-27] MEDS: Loratadine 10 MG TABLET PO SCH (08:59)
[2017-11-27] MEDS: Magnesium Oxide 400 MG TABLET PO SCH (08:59)
[2017-11-27] MEDS: *HR* Amiodarone 200 MG TABLET PO SCH (09:00)
[2017-11-27] MEDS: Metoprolol XL (24 HR) Succ 50 MG TAB.ER.24H PO SCH (09:00)
--- NOTE | 2017-11-27 09:03 | Internal Med Progress Note ---
Date of Encounter: 11/27/17 Time of Encounter: 09:01 - Assessment and plan (1) CAD (coronary artery disease) Current Visit: Yes Status: Chronic Assessment and plan: has known CAD with prior PCI. Presented with complaints of chest pain. Serial troponins negative, CXR with cardiomegaly otherwise nonacute. Stress test with evidence of infarct with minimal jan-infarct ischemia versus hibernating myocardium. 11/26/17 [facility] with successful PCI to proximal LAD. Cont ASA, plavix, BB, statin, nitrate. Cardiology following. Qualifiers: Coronary Disease-Associated Artery/Lesion type: [place] artery [place] vs. transplanted heart: [place] heart Associated angina: angina presence unspecified Qualified Code(s): I25.10 - Atherosclerotic heart disease of [place] coronary artery without angina pectoris (2) Atrial fibrillation Current Visit: Yes Status: Chronic Assessment and plan: per hx. Rate controlled. Continue home BB, amiodarone. Xarelto on hold for [facility]. Defer resuming Xarelto to Cardiology Qualifiers: Atrial fibrillation type: unspecified Qualified Code(s): I48.91 - Unspecified atrial fibrillation (3) Cardiac pacemaker in situ Current Visit: Yes Status: Chronic Assessment and plan: has PPM. Tele showing paced rhythm (4) Hypothyroid Current Visit: Yes Status: Acute Assessment and plan: per hx. Cont home levothyroxine Qualifiers: Hypothyroidism type: unspecified Qualified Code(s): E03.9 - Hypothyroidism , unspecified (5) HTN (hypertension), benign Current Visit: Yes Status: Acute Assessment and plan: per hx. Cont home BP medication. Monitor BP and titrate PRN (6) Hiatal hernia Current Visit: Yes Status: Chronic Assessment and plan: Symptomatic with chest pain and early satiety. CT abd/pelvis shows moderate hiatal hernia. Cont PPI, H2. Recommend outpatient GI follow-up (7) Obesity Current Visit: Yes Status: Acute Assessment and plan: Encourage lifestyle modifications, reduced calorie diet. Qualifiers: Obesity type: unspecified obesity type Obesity classification: adult class 2 (BMI 35 - 39.9) Serious obesity comorbidity presence: with serious comorbidity Body mass index: BMI 37.0-37.9 Qualified Code(s): E66.9 - Obesity, unspecified; Z68.37 - Body mass index (BMI) 37.0-37.9, adult; Z68.37 - Body mass index (BMI) 37.0-37.9, adult (8) DVT prophylaxis Current Visit: Yes Status: Acute Assessment and plan: SCDs - Time Spent With Patient Total time spent is greater than 50% in coordination of care (as documented) at patient's floor/unit and/or counseling patient: less than 15 minutes - Subjective Interval history: Seen and examined at bedside; sitting up on edge of the bed eating breakfast. Complains of general weakness and malaise. Has some tenderness at right groin LHC site. No chest pain or shortness of breath. She does not think she will be able to return home today. She is agreeable to physical therapy evaluation. - Constitutional Vitals: Temp Pulse Resp BP Pulse Ox 97.5 F L 64 16 135/75 91 11/27/17 04:15 11/27/17 07:40 11/27/17 04:15 11/27/17 04:15 11/27/17 04:15 General appearance: Present: cooperative, A&O X 3, pleasant, no acute distress, obese, answers questions appropriately - Head Head exam: Present: atraumatic, normocephalic - Eye Eye exam: Present: PERRL, conjuntiva pink, sclera anicteric Pupils: Present: PERRL - Neck Neck exam general surgery: Present: supple, trachea midline. Absent: lymphadenopathy - Respiratory Respiratory exam: Present: CTAB. Absent: accessory muscle use, rales, rhonchi, wheezes - Cardiovascular Cardiovascular exam: Present: RRR, +S1, +S2. Absent: diastolic murmur, gallop, rubs, systolic murmur - GI/Abdominal GI/Abdominal exam: Present: normal bowel sounds, soft, no peritoneal signs. Absent: distended, tenderness - Extremities Exam Extremities exam: Present: pedal edema (Trace nonpitting pedal edema bilaterally. Right groin s/p LHC site dressing C/D/I), warm, radial pulses palpable and symmetrical. Absent: calf tenderness, cyanotic - Neurological Exam Neurological exam: Present: CN II-XII intact, oriented X3, no focal deficits. Absent: pronater drift, facial droop, speech deficit - Skin Skin exam: Present: dry, intact Internal Medicine: Result - Labs CBC & Chem 7: 11/27/17 04:33 11/27/17 04:33 Labs: Short CBC 11/27/17 Range/Units 04:33 WBC 7.3 (4.3-11.1) K/mcL Hgb 13.3 (11.5-15.4) g/dL Hct 41.0 (35.3-44.9) % Plt Count 226 (140-400) K/mcL BMP 11/27/17 04:33 Sodium 137 Potassium 3.8 Chloride 110 H Carbon Dioxide 25 BUN 15 Creatinine 0.86 Glucose 95 Calcium 8.8 - ABG Interpretation ABG results: PT/INR, D-dimer PT 15.9 Seconds (9.4-12.1) H 11/21/17 19:14 Consult Discharge Plan - Plan Referrals: Yajaira Ryan DO [Primary Care Provider] -
--- NOTE | 2017-11-27 09:37 | Cardiology Progress Note ---
Date of Encounter: 11/27/17 Time of Encounter: 09:20 Assessment and Plan (1) CAD (coronary artery disease) Current Visit: Yes Status: Chronic Abnormal stress test with TID. TTE: EF 45-50%. [facility] 11/26/17: s/p successful PTCA/JIMENA to proximal and mid LAD. No chest pain overnight. No issues with cath site. Post PCI discharge instructions discussed including importance of uninterrupted DAPT (asa + plavix). Patient on triple therapy d/t afib, discussed with Dr. Lopes, recommend asa, plavix, and xarelto upon discharge. Will likely stop asa in the outpatient setting at follow-up. Otherwise, continue CV medications including statin, BB, ARB, and nitrates. Cardiac rehab consulted. No further inpatient recommendations, Cardiology will sign-off. Will coordinate outpt follow-up. Qualifiers: Coronary Disease-Associated Artery/Lesion type: [place] artery [place] vs. transplanted heart: [place] heart Associated angina: angina presence unspecified Qualified Code(s): I25.10 - Atherosclerotic heart disease of [place] coronary artery without angina pectoris (2) Atrial fibrillation Current Visit: Yes Status: Chronic Hx of afib, telemetry shows paced rhythm. Will resume Xarelto 20 mg daily. Patient aware of triple therapy. Qualifiers: Atrial fibrillation type: unspecified Qualified Code(s): I48.91 - Unspecified atrial fibrillation Discussion w patient/family: The assessment and plan as outlined above was discussed with the patient and/or family members who expressed understanding and agreement. All questions were answered. Thank you for involving us in the care of your patient. Please call with any questions. The patient was discussed and reviewed with Dr. Lopes who agrees with plan as stated above. Subjective Principal diagnosis: Abnormal stress test Interval history: Seen and examined. Reports generalized weakness this morning and left TMJ discomfort--reproducible upon exam. Denies chest pain/discomfort. No shortness of breath. No issues with cath site other than mild tenderness. Objective Vital Signs, Last 4 Hours Pulse 11/27/17 07:40 64 General: Conversant, No Apparent Distress HEENT: Atraumatic, Normocephaly, Mucus Membranes Moist Cardiac: Reg Rate and Rhythm, Normal S1 and S2 Lungs: Normal Breath Sounds Neuro: Alert and responsive Abdomen: Soft Skin: No rashes noted on visualized skin Musculoskeletal: No Chest Wall Tenderness Extremities: No Edema, Normal Pulses, Other (right groin: site soft, no hematoma present. +2 DP/PT pulses. ) Results 11/27/17 04:33 11/27/17 04:33 Lab Results 11/27/17 11/27/17 04:33 04:33 WBC 7.3 Hgb 13.3 Hct 41.0 Plt Count 226 Sodium 137 Potassium 3.8 Chloride 110 H Carbon Dioxide 25 BUN 15 Creatinine 0.86 Glucose 95 Calcium 8.8 Active Medications Acetaminophen (Tylenol) 650 mg PO Q6H PRN PRN Reason: Mild-Moderate Pain Stop: 05/28/18 01:27 Last Admin: 11/26/17 01:36 Dose: 650 mg Hydrocodone Bitart/Acetaminophen ([place] 5-325 Mg) 1 tab PO Q4HR PRN PRN Reason: Moderate Pain Stop: 05/28/18 16:03 Last Admin: 11/26/17 21:16 Dose: 1 tab Amiodarone HCl (Cordarone) 200 mg PO DAILY [facility] Stop: 05/23/18 22:16 Last Admin: 11/27/17 09:00 Dose: 200 mg Amlodipine Besylate (Norvasc) 10 mg PO DAILY [facility] Stop: 05/23/18 22:16 Last Admin: 11/27/17 08:59 Dose: 10 mg Amoxicillin/Clavulanate Potassium (Augmentin) 875 mg PO BIDWM [facility] Stop: 05/26/18 17:01 Last Admin: 11/27/17 09:00 Dose: 875 mg Aspirin (Aspirin Ec) 81 mg PO DAILY [facility] Stop: 05/29/18 09:01 Last Admin: 11/27/17 08:59 Dose: 81 mg Clopidogrel Bisulfate (Plavix) 75 mg PO DAILY [facility] Stop: 05/23/18 22:16 Last Admin: 11/27/17 08:59 Dose: 75 mg Isosorbide Mononitrate (Imdur) 60 mg PO DAILY [facility] Stop: 05/23/18 22:16 Last Admin: 11/27/17 08:59 Dose: 60 mg Levothyroxine Sodium (Synthroid) 100 mcg PO QAM [facility] Stop: 05/24/18 09:01 Last Admin: 11/27/17 08:59 Dose: 100 mcg Loratadine (Claritin) 10 mg PO DAILY [facility] PRN Reason: Protocol Stop: 05/25/18 10:46 Last Admin: 11/27/17 08:59 Dose: 10 mg Losartan Potassium (Cozaar) 100 mg PO DAILY [facility] Stop: 05/23/18 22:16 Last Admin: 11/27/17 08:58 Dose: 100 mg Lovastatin (Mevacor) 20 mg PO DAILY [facility] Stop: 05/25/18 09:01 Last Admin: 11/27/17 08:58 Dose: 20 mg Magnesium Oxide (Mag-Ox) 400 mg PO DAILY [facility] PRN Reason: Protocol Stop: 05/24/18 09:01 Last Admin: 11/27/17 08:59 Dose: 400 mg Metoprolol Succinate (Toprol Xl) 50 mg PO DAILY [facility] Stop: 05/24/18 09:01 Last Admin: 11/27/17 09:00 Dose: 50 mg Naloxone HCl (Narcan) 0.4 mg IVP Q2MIN PRN PRN Reason: SEE COMMENTS Stop: 05/23/18 21:25 Nitroglycerin (Nitroglycerin) 0.4 mg SL Q5MIN PRN PRN Reason: Chest Pain Stop: 05/23/18 19:21 Last Admin: 11/21/17 19:44 Dose: 0.4 mg Omeprazole (Prilosec) 20 mg PO BID [facility] Stop: 05/24/18 09:01 Last Admin: 11/27/17 08:59 Dose: 20 mg Ondansetron HCl (Zofran Odt) 4 mg PO DAILY PRN PRN Reason: Nausea Last Admin: 11/27/17 06:37 Dose: 4 mg Ondansetron HCl (Zofran) 4 mg IVP Q6HR PRN; Protocol PRN Reason: Nausea And Vomiting Stop: 05/28/18 16:03 Pharmacy Profile Note (Patient Taking Own Medication) 1 each TP Q6H PRN PRN Reason: BACK PAIN Stop: 05/24/18 20:33 Potassium Chloride (Potassium Chloride) 10 meq PO DAILY [facility] Stop: 05/24/18 09:01 Last Admin: 11/27/17 08:59 Dose: 10 meq Rivaroxaban (Xarelto) 15 mg PO 1700 [facility] Stop: 05/29/18 17:01 Tramadol HCl (Ultram) 50 mg PO QID PRN PRN Reason: Pain Stop: 09/29/18 22:07 Last Admin: 11/26/17 22:58 Dose: 50 mg - Imaging and Cardiology Stress Test: report reviewed Echo: report reviewed Cardiac cath: report reviewed Other Results: 12 hour tele: avg HR=60 paced rhythm. - EKG Interpretation EKG results cardiology: personally reviewed Consult Discharge Plan - Plan Referrals: Yajaira Ryan DO [Primary Care Provider] - 12/01/17 1:00 pm
[2017-11-27] MEDS ORDERED: *HR* Rivaroxaban 15 MG TABLET PO SCH ×2 (17:00)
[2017-11-28 06:32] VITALS: BP 150/72
[2017-11-28] MEDS: traMADol 50 MG TABLET PO PRN (06:36)
[2017-11-28] MEDS: Aspirin Enteric Coated 81 MG Tablet PO SCH (08:23)
[2017-11-28] MEDS: Isosorbide MONOnitrate (24 HR) 60 MG TAB.ER.24H PO SCH (08:23)
[2017-11-28] MEDS: amLODIPine 5 MG TABLET PO SCH (08:24)
[2017-11-28] MEDS: Magnesium Oxide 400 MG TABLET PO SCH (08:24)
[2017-11-28] MEDS: Loratadine 10 MG TABLET PO SCH (08:24)
[2017-11-28] MEDS: *HR* Amiodarone 200 MG TABLET PO SCH (08:24)
[2017-11-28] MEDS: Metoprolol XL (24 HR) Succ 50 MG TAB.ER.24H PO SCH (08:24)
--- NOTE | 2017-11-28 08:41 | Discharge Summary ---
- NOTES TO OUTPATIENT PROVIDER Notes to Outpatient Provider: Left foot x-ray with mild calcaneal enthesopathy, otherwise non-acute. Follow-up imaging recommended if pain persists or worsens following conservative management. CT abd/pelvis shows moderate hiatal hernia. Recommend outpatient GI follow-up Orders not resulted at time of discharge: Pending orders 11/21/17 21:26 NM yara perf SPECT multi [NM] Routine Date of Encounter: 11/28/17 Time of Encounter: 08:37 - Discharge Diagnosis (1) CAD (coronary artery disease) Priority: Primary Status: Chronic Comments: presented with chest pain. Abnormal stress test with TID. TTE: EF 45-50%. [facility] 11/26/17: s/p successful PTCA/JIMENA to proximal and mid LAD. Post PCI discharge instructions discussed with patient including importance of uninterrupted DAPT ( asa + plavix) per Cardiology. Will be on triple therapy due to afib with plavix , and xarelto upon discharge (ASA will likely be stopped in the outpatient setting at follow-up). Cont ASA, plavix, Xarelto, statin, BB, ARB, and nitrates. Follow-up with Cardiology outpatient Qualifiers: Coronary Disease-Associated Artery/Lesion type: [place] artery [place] vs. transplanted heart: [place] heart Associated angina: angina presence unspecified Qualified Code(s): I25.10 - Atherosclerotic heart disease of [place] coronary artery without angina pectoris (2) Atrial fibrillation Priority: Secondary Status: Chronic Comments: per hx. Rate controlled. Continue home BB, amiodarone, Xarelto (creatinine clearance calculated at 30; Xarelto renaly dosed at 15mg daily). Follow-up with Cardiology out-patient Qualifiers: Atrial fibrillation type: unspecified Qualified Code(s): I48.91 - Unspecified atrial fibrillation (3) Cardiac pacemaker in situ Priority: Secondary Status: Chronic Comments: has PPM. Tele with paced rhythm (4) Hypothyroid Priority: Secondary Status: Chronic Comments: per hx. Cont home levothyroxine Qualifiers: Hypothyroidism type: unspecified Qualified Code(s): E03.9 - Hypothyroidism , unspecified (5) HTN (hypertension), benign Priority: Primary Status: Acute Comments: per hx. BP variable but acceptable. Cont home BP medication. (6) Hiatal hernia Priority: Secondary Status: Chronic Comments: Symptomatic with chest pain and early satiety. CT abd/pelvis shows moderate hiatal hernia. Cont PPI, H2. Recommend outpatient GI follow-up (7) Obesity Priority: Secondary Status: Acute Comments: Encouraged lifestyle modifications, reduced calorie diet. Qualifiers: Obesity type: unspecified obesity type Obesity classification: adult class 2 (BMI 35 - 39.9) Serious obesity comorbidity presence: with serious comorbidity Body mass index: BMI 37.0-37.9 Qualified Code(s): E66.9 - Obesity, unspecified; Z68.37 - Body mass index (BMI) 37.0-37.9, adult; Z68.37 - Body mass index (BMI) 37.0-37.9, adult (8) Left foot pain Priority: Primary Status: Acute Comments: c/o left foot pain in this hospitalization. Left foot x-ray with mild calcaneal enthesopathy, otherwise non-acute. PT consulted for splinting. Follow- up imaging recommended if pain persists or worsens following conservative management. Hospital course: See assessment and plan for Hospital course Discharge discussed with: patient (Seen and examined at bedside. Patient says she feels okay today. Sitting up on edge of bed eating breakfast. Has some mild left foot pain. She is agreeable to PT eval for possible splinting. No chest pain or shortness of breath. Has some mild tenderness at right groin site. Educated her legs on importance of adhering to dual antiplatelet therapy and bleeding precautions as she will be on Xarelto as well. Patient verbalized understanding.) - Time Spent with Patient Total time spent providing and/or coordinating discharge services: - Discharge Medications Prescriptions: Aspirin Enteric Coated [Aspirin EC] 81 mg PO DAILY #30 tablet.dr Weiner Medications: Albuterol Neb [Proventil Neb] 2.5 mg IH Q4HR PRN #30 vial.neb 11/04/15 [Rx] Ipratropium Neb [Atrovent Neb] 0.5 mg IH Q6H PRN #30 inhsol 11/04/15 [Rx] Amiodarone HCl [Pacerone] 200 mg PO DAILY 12/14/15 [History] Amlodipine Besylate 10 mg PO DAILY 12/14/15 [History] Clopidogrel [Plavix] 75 mg PO DAILY 12/14/15 [History] Isosorbide MONOnitrate (24 HR) [Imdur] 60 mg PO DAILY 12/14/15 [History] Levothyroxine Sodium [Tirosint] 100 mg PO QAM 12/14/15 [History] Losartan Potassium [Cozaar] 100 mg PO DAILY 12/14/15 [History] Magnesium Oxide [Magnesium] 400 mg PO DAILY 12/14/15 [History] Metoprolol Succinate 50 mg PO DAILY 12/14/15 [History] Ondansetron HCl [Zofran] 4 mg PO DAILY PRN 12/14/15 [History] Pantoprazole Sodium [Protonix] 40 mg PO BID 12/14/15 [History] Potassium Chloride 10 meq PO DAILY 12/14/15 [History] Rivaroxaban [Xarelto] 15 mg PO DAILY 12/14/15 [History] Tramadol HCl [Ultram] 50 mg PO QID PRN 11/21/17 [History] Diclofenac Sodium [Diclo Gel] 1 each TP Q6HR PRN 11/22/17 [History] Lovastatin [Mevacor] 20 mg PO DAILY 11/22/17 [History] Aspirin Enteric Coated [Aspirin EC] 81 mg PO DAILY #30 tablet. 11/28/17 [Rx] Allergies/Adverse Reactions: 3 Allergy/AdvReac Type Severity Reaction Status Date / Time ibuprofen Allergy Dizziness Verified 11/22/17 15:58 Sulfa (Sulfonamide Allergy Rash Verified 11/22/17 15:58 Antibiotics) Date of admission: 11/21/17 20:52 Primary care physician: J Luis Purdy Consults: 11/24/17 16:22 Consult to Cardiology [CONS] Routine Comment: Consulting Provider: Cardiology Estella Reason for Consult: abnormal stress Time Notified: 16:22 Call Completed: Yes 11/26/17 16:36 Consult to Cardiac Rehabilitation-Phase1 [CONS] Routine Comment: Reason for Consult: post op PCI Call Completed: Yes 11/27/17 08:57 Consult to Physical Therapy [CONS] Routine Comment: Evaluate, develop and implement POC Reason for Consult: Prolonged hospitalization, deconditioning. Eval for home safety Does patient have active BEDREST order?: No Is patient medically & hemodynamically stable?: Yes Discharging clinician: Meme Thakur Anticipated date of discharge: 11/28/17 - Constitutional Vitals: Temp Pulse Resp BP Pulse Ox 98.1 F 61 18 150/72 91 11/28/17 06:30 11/28/17 06:30 11/28/17 06:30 11/28/17 06:30 11/28/17 06:30 General appearance: Present: cooperative, A&O X 3, pleasant, no acute distress, obese, answers questions appropriately - Head Head exam: Present: atraumatic, normocephalic - Eye Eye exam: Present: PERRL, conjuntiva pink, sclera anicteric Pupils: Present: PERRL - Neck Neck exam general surgery: Present: supple, trachea midline. Absent: lymphadenopathy - Respiratory Respiratory exam: Present: CTAB. Absent: accessory muscle use, rales, rhonchi, wheezes - Cardiovascular Cardiovascular exam: Present: RRR, +S1, +S2. Absent: diastolic murmur, gallop, rubs, systolic murmur - GI/Abdominal GI/Abdominal exam: Present: normal bowel sounds, soft, no peritoneal signs. Absent: distended, tenderness - Extremities Exam Extremities exam: Present: warm, radial pulses palpable and symmetrical. Absent : calf tenderness, cyanotic, pedal edema Additional comments: Trace nonpitting bilateral edema. Right groin with left heart catheterization dressing clean, dry, intact. No evidence of hematoma or bleeding. - Neurological Exam Neurological exam: Present: CN II-XII intact, oriented X3, no focal deficits. Absent: pronater drift, facial droop, speech deficit - Skin Skin exam: Present: dry, intact - Patient Status Disposition: Home, Self-Care Condition: Good Functional capacity at discharge: uses cane/walker - Discharge Instructions Instructions: Aspirin (By mouth), Clopidogrel (By mouth), Rivaroxaban (By mouth ), Coronary Artery Disease (DC) Follow Up With: Yajaira Ryan DO [Primary Care Provider] - 12/01/17 1:00 pm Alfredito Samayoa DO [Partnered Physician] - (Please call for follow-up appt if you have not heard from office in 2-3 weeks) Additional Instructions: RISK FACTORS: STOP SMOKING: If you smoke, STOP. Smoking or tobacco use significantly increases your risk of heart disease because nicotine causes the arteries to narrow or constrict. It also causes fats to stick to the artery. Your chances of having a heart attack are greatly increased if you continue to smoke. For more information, call the education line for smoking cessation 3-469-XBXJAHI EAT A LOW FAT/CHOLESTEROL/SODIUM DIET: This diet may help reduce your chances of having a heart attack. LIFTING: Avoid lifting anything more than 10 pounds for 5-7 days Prior to straining, laughing, sneezing and/or coughing, apply manual pressure directly over insertion site. ACTIVITY: You may walk or climb stairs as tolerated You can resume sexual activity as tolerated In general, you are encouraged to engage in a minimum of 30 minutes or more of moderate intensity physical activity, such as brisk walking, daily or at least 3 -4 times weekly BATHING Do not submerge the site into water (bath tub, hot tub, swimming pool) for 1 week. This can be a source for infection into the blood stream. You may shower after 24 hours SITE CARE: After 24 hours, you may remove the dressing and leave the site open to air. Keep the site clean and dry. Clean gently and pat dry. You can expect bruising and tenderness that gradually resolve within a week or two. Return to work as instructed per your physician Resume driving as instructed per physician Keep all scheduled follow up appointments Resume medications as instructed IMPORTANT: If prescribed a Platelet Aggregation Inhibitor such as, Plavix, Brilinta or Effient: Duration of therapy is minimum one year These medications are often used in combination with Aspirin in prevention of future heart attacks Never discontinue unless consult with your Cafeteria Operator STROKE (CVA) Risk factors for a stroke are: Age, cigarette smoking, diabetes, excessive alcohol consumption, family history, high blood pressure, overweight, physical inactivity, prior stroke, heart attack, diagnosis of carotid artery stenosis or other artery disease. Warning signs: Sudden numbness or weakness of the face, arm or leg; especially on one side of the body, sudden confusion, trouble speaking or understanding, sudden trouble seeing in one or both eyes, sudden trouble walking, dizziness, loss of balance or coordination, sudden severe headache with no cause. Call 911 or go to the Emergency Room. CONGESTIVE HEART FAILURE: If you have been diagnosed with Congestive Heart Failure (CHF) and your symptoms return, make an appointment with your physician Weigh yourself daily. Notify your physician if you have a weight gain of two or more pounds in one day or five or more pounds in one week. If you experience any difficulty breathing, please call 911 BLEEDING: Although the risk of bleeding is minimal, it can happen. If you have any bleeding from the site, apply firm pressure above the puncture site for 10-15 minutes. If the bleeding does not stop, continue manual pressure and call 911 Contact your physician if: You develop a fever greater than 101 degrees Fahrenheit Your site becomes reddened or has any drainage You have an increase in pain or burning at the site or if a large knot forms at the site. If you experience chest pain, shortness of breath, dizziness, or extreme tiredness, stop the activity and rest. Please notify your physicians office if you experience any of these symptoms and they are not relieved by rest please call 911! - Diet and Activity Activity: increase activity as tolerated
--- NOTE | 2017-11-29 13:28 | Electrocardiograph Report ---
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
--- NOTE | 2017-11-29 13:39 | Electrocardiograph Report ---
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
== END 2017-11-28 11:16 | disposition home or self-care (01) ==
LOC: 3BNU 19:09 → EMEROO 19:09 → 3BNU 21:21 → 2NNU 11-26 16:18
PROVIDERS: ADMIT Internal Medicine Nephrology; ATTEND Registered Nurse

== ENCOUNTER 2019-05-04 12:47 | Observation (INO) ==
[2019-05-04] MEDS ORDERED: Aspirin 81 MG TAB.CHEW PO ONE (12:57)
--- NOTE | 2019-05-04 13:04 | Emergency Department Note ---
Disposition Clinical Impression: Chest pain Qualifiers: Chest pain type: unspecified Qualified Code(s): R07.9 - Chest pain, unspecified Disposition: Admitted As Inpatient Condition: Good Forms: ED Satisfaction Letter Time of Disposition: 15:08 General Adult HPI - General Chief complaint: ED Chest Pain Stated complaint: MAYITO Time Seen by Provider: 05/04/19 12:50 Source: patient, family Limitations: no limitations Nursing Notes Reviewed: Yes Vital Signs Reviewed: Yes - History of Present Illness HPI Narrative: 78-year-old female with significant past medical history of atrial fibrillation and previous stroke currently on Plavix and xarelto presenting to the emergency department with chief complaint of chest burning. Patient states yesterday while she was sitting her chest started burning. Pain across her chest. Did not radiate down her arms. Did disclose diaphoresis but denies any nausea or vomiting. Patient does have history of coronary artery disease with previous stents. Does not remember the last time she had a stent placed. She does follow with cardiology here at [facility]. Pain Scale: 0 - Related Data Home Medications Medication Instructions Recorded Confirmed Amiodarone HCl [Pacerone] 200 mg PO DAILY 12/14/15 12/17/18 Amlodipine Besylate 10 mg PO DAILY 12/14/15 12/17/18 Clopidogrel [Plavix] 75 mg PO DAILY 12/14/15 12/17/18 Isosorbide MONOnitrate (24 HR) 60 mg PO DAILY 12/14/15 12/17/18 [Imdur] Levothyroxine Sodium [Tirosint] 100 mg PO QAM 12/14/15 12/17/18 Losartan Potassium [Cozaar] 100 mg PO DAILY 12/14/15 12/17/18 Magnesium Oxide [Magnesium] 400 mg PO DAILY 12/14/15 12/17/18 Metoprolol Succinate 50 mg PO DAILY 12/14/15 12/17/18 Ondansetron HCl [Zofran] 4 mg PO DAILY PRN 12/14/15 12/17/18 Pantoprazole Sodium [Protonix] 40 mg PO BID 12/14/15 12/17/18 Potassium Chloride 10 meq PO DAILY 12/14/15 12/17/18 Rivaroxaban [Xarelto] 15 mg PO DAILY 12/14/15 12/17/18 Diclofenac Sodium [Diclo Gel] 1 each TP Q6HR PRN 11/22/17 12/17/18 Lovastatin [Mevacor] 20 mg PO DAILY 11/22/17 12/17/18 Previous Rx's Medication Instructions Recorded Albuterol Neb [Proventil Neb] 2.5 mg IH Q4HR PRN #30 vial.neb 11/04/15 Ipratropium Neb [Atrovent Neb] 0.5 mg IH Q6H PRN #30 inhsol 11/04/15 Aspirin Enteric Coated [Aspirin EC] 81 mg PO DAILY #30 tablet.dr 11/28/17 Polyethylene Glycol 3350 [MiraLAX] 17 gm PO DAILY #14 powd.pack 12/11/17 Acetaminophen [Tylenol] 500 mg PO Q6HR PRN #20 tablet 12/17/18 Benzonatate [Tessalon] 200 mg PO TID PRN #20 capsule 12/17/18 Cephalexin [Keflex] 500 mg PO QID #40 capsule 12/17/18 Cetirizine HCl [Zyrtec] 10 mg PO DAILY #4 capsule 12/17/18 Allergies Allergy/AdvReac Type Severity Reaction Status Date / Time ibuprofen Allergy Dizziness Verified 12/17/18 14:37 naproxen [From Naprosyn] Allergy Rash Verified 12/17/18 14:37 Sulfa (Sulfonamide Allergy Rash Verified 12/17/18 14:37 Antibiotics) All systems ED: reviewed and negative except as stated. Constitutional: Reports: weakness. Denies: fever Eyes: Reports: as per HPI ENT ED: Reports: as per HPI Cardiovascular: Reports: chest pain Respiratory: Reports: as per HPI Gastrointestinal: Denies: nausea, vomiting Genitourinary: Reports: as per HPI Musculoskeletal: Reports: as per HPI Integumentary: Reports: as per HPI Neurological: Reports: as per HPI Psychiatric: Reports: as per HPI Endocrine: Reports: as per HPI Hematological/Lymphatic: Reports: as per HPI Allergic/Immunologic: Reports: as per HPI Past Medical History - Past Medical History Attestation: Yes The following information was validated with the patient. Medical history: Reports: coronary artery disease, hyperlipidemia, hypertension, thyroid disease Surgical history: Reports: appendectomy, cholecystectomy, hysterectomy Psychiatric history: Reports: no psych history DISTRICT GAUGER history: Reports: non-contributory - Social History Smoking Status: 2nd Hand Smoke Exposure Smokeless Tobacco Status: No Alcohol use: Reports: none Drug use: Reports: none Physical Exam - General Limitations: no limitations General appearance: alert, in no apparent distress - Head Head exam: atraumatic, normocephalic, normal inspection - Eye Eye exam: Absent: scleral icterus - ENT ENT exam: mucous membranes moist - Neck Neck exam: Present: full ROM - Chest Chest inspection: Present: symmetric chest wall rise - Respiratory Respiratory exam: Present: normal lung sounds bilaterally. Absent: respiratory distress, wheezes - Cardiovascular Cardiovascular exam: Present: regular rate, normal rhythm, normal heart sounds - Abdominal Exam Abdominal exam: Present: soft, Non-Tender. Absent: distention, guarding, rebound - Extremities Exam Extremities exam: Present: full ROM - Neurological Exam Neurological exam: Present: alert, oriented X3 - Psychiatric Psychiatric exam: Present: normal affect - Skin Skin exam: Present: warm Course Course Narrative: 78-year-old female presenting for chest burning. In the room she is alert and oriented 3 and hemodynamically stable. Patient does have significant cardiac history. At this time will obtain basic labs including troponin, EKG and chest x-ray. Disposition most likely admission but pending results. Patient agrees with this plan. We will provide her with a full dose aspirin and a nit roglycerin trial. - Reevaluation(s) Reevaluation #1: Patient's laboratory analysis unchanged from baseline. Initial troponin and EKG shows no sign of ischemia. Due to patient's significant cardiac history we will plan to admit the patient for further chest pain workup. Patient remains alert and oriented 3 and hemodynamically stable. Patient agrees this plan. Chest pain-free at this time. I spoke with the hospitalist educational guidance counselor Dr. Schneider who agrees to accept the patient at this time. Vital Signs Temperature 98.0 F 05/04/19 12:49 Pulse Rate 96 05/04/19 12:49 Respiratory Rate 18 05/04/19 12:49 Blood Pressure 150/77 05/04/19 12:49 O2 Sat by Pulse Oximetry 05/04/19 12:49 Temperature 98.0 F 05/04/19 12:53 Pulse Rate 96 05/04/19 12:53 Respiratory Rate 18 05/04/19 12:53 Blood Pressure 150/77 05/04/19 12:53 O2 Sat by Pulse Oximetry 05/04/19 13:23 Oxygen Delivery Oxygen Delivery Room Air Medical Decision Making - Lab Data Result diagrams: 05/04/19 13:00 05/04/19 13:00 Lab Results 05/04/19 05/04/19 05/04/19 Range/Units 13:00 13:00 13:00 WBC 7.1 (4.3-11.1) K/mcL RBC 4.79 (3.82-4.97) M/mcL Hgb 14.5 (11.5-15.4) g/dL Hct 43.7 (35.3-44.9) % MCV 91.2 (83.0-100.0) fL MCH 30.3 (28.0-33.3) pg MCHC 33.2 (31.6-35.5) g/dL RDW 13.1 (11.5-14.5) % Plt Count 263 (140-400) K/mcL MPV 9.4 (9.4-12.4) fL Immature Gran % 0.7 (0-4) % Seg Neutrophils % 72.5 % Lymphocytes % 15.4 % Monocytes % 9.0 % Eosinophils % 1.8 % Basophils % 0.6 % Neutrophils # 5.2 (1.6-8.9) K/mcL Lymphocytes # 1.1 (0.6-4.6) K/mcL Monocytes # 0.6 (0.0-1.3) K/mcL Eosinophils # 0.1 (0.0-0.6) K/mcL Basophils # 0.0 (0.0-0.2) K/mcL PT 19.2 H (9.4-12.1) Seconds INR 1.7 APTT 41.6 H (26.0-36.0) Seconds Sodium 139 (136-145) mEq/L Potassium 4.0 (3.5-5.1) mEq/L Chloride 104 (98-107) mEq/L Carbon Dioxide 24 (23-29) mEq/L BUN 16 (8-23) mg/dL Creatinine 1.05 (0.60-1.20) mg/dL Est GFR ( Amer) > 60 (> 60) Est GFR (Non-Af Amer) 50 L (> 60) BUN/Creatinine Ratio 15 (6-26) Glucose 114 H (70-105) mg/dL Calculated Osmolality 290 (280-300) Calcium 9.3 (8.6-10.3) mg/dL Troponin I < 0.03 (< 0.04) ng/mL - EKG Data EKG #1 EKG attestation: Yes I reviewed and interpreted this EKG. EKG results narrative: AV paced. 64 beats for minute. [place] interval 57, QRS 180, QTC 502. No sign of acute ST segment elevation. Compared to previous EKG completed on 11/27/2017 no significant changes noted Heart Score - Score History: Moderately Suspicious EKG: Normal Age: Greater than 65 Risk Factors: Equal/Greater than 3 risk factor or history of atherosclerotic disease Troponin: Less than normal limit HEART Score Total: 5
[2019-05-04 13:21] LABS: Basophils % 0.6 %; Eosinophils # 0.1 K/mcL (0.0-0.6); Eosinophils % 1.8 %; Hematocrit 43.7 % (35.3-44.9); Hemoglobin 14.5 g/dL (11.5-15.4); Immature Granulocytes % 0.7 % (0-4); Lymphocytes # 1.1 K/mcL (0.6-4.6); Lymphocytes % 15.4 %; Mean Corpuscular HGB Conc 33.2 g/dL (31.6-35.5); Mean Corpuscular Hemoglobin 30.3 pg (28.0-33.3); Mean Corpuscular Volume 91.2 fL (83.0-100.0); Mean Platelet Volume 9.4 fL (9.4-12.4); Monocytes # 0.6 K/mcL (0.0-1.3); Neutrophils # 5.2 K/mcL (1.6-8.9); Platelet Count 263 K/mcL (140-400); Red Blood Count 4.79 M/mcL (3.82-4.97); Red Cell Distribution Width 13.1 % (11.5-14.5); Segmented Neutrophils % 72.5 %; White Blood Count 7.1 K/mcL (4.3-11.1)
[2019-05-04 13:25] LABS: INR 1.7; Prothrombin Time 19.2 Seconds (9.4-12.1)
[2019-05-04 13:28] LABS: Activated Partial Thrombo Time 41.6 Seconds (26.0-36.0)
[2019-05-04 14:34] LABS: Blood Urea Nitrogen 16 mg/dL (8-23); Calcium 9.3 mg/dL (8.6-10.3); Carbon Dioxide 24 mEq/L (23-29); Chloride 104 mEq/L (98-107); Glucose 114 mg/dL (70-105); Osmolality,Calculated 290 (280-300); Sodium 139 mEq/L (136-145); Troponin I < 0.03 ng/mL (< 0.04)
[2019-05-04 14:51] LABS: BUN/Creatinine Ratio 15 (6-26); eGFR For African Americans > 60 (> 60); eGFR For Non-African Americans 50 (> 60)
[2019-05-04] MEDS: Nitroglycerin 0.4 MG TAB.SUBL SL PRN ×2 (15:19→15:26)
[2019-05-04] MEDS ORDERED: Naloxone 0.4 MG/ML INJ IVP PRN (15:48)
--- NOTE | 2019-05-04 16:07 | Internal Med History&Physical ---
Date of Encounter: 05/04/19 Time of Encounter: 16:05 Internal Medicine - H&P: HPI Chief complaint: Chest Pain Admitted From: Home History of present illness: Ms. Rutherford is a 78 year old female with past medical history of atrial fibrillation on anticoagulation, previous stroke, GERD, coronary artery disease status post stent placement on 11/26/2017, status post pacemaker for tachy-danny syndrome, hypertension, hyperlipidemia and hypothyroidism. She presented with chest pain of the days duration. Patient states that she was watching TV at home yesterday afternoon when she began experiencing sharp burning chest pain across her sternum and left side of her chest. She states that the pain resolved shortly without intervention. Was about 8/10, nonradiating, with no exacerbation or relieving factors. She notes that the pain recurred later last night and resolved on its own in similar fashion but this morning it has persisted. She denies associated lightheadedness, palpitation, fever and chills. Patient states that at her baseline she usually has some shortness of breath when she even walks to the bathroom in her house. Past Med Surg Social Fam HX - Past Medical History Medical history: coronary artery disease, hyperlipidemia, hypertension, thyroid disease Additional medical history: stage III renal disease Psychiatric history: no psych history - Past Surgical History Surgical History: appendectomy, cholecystectomy, hysterectomy Additional surgical history: heart stent placement, PACEMAKER - Social History Smoking Status: 2nd Hand Smoke Exposure Smokeless Tobacco Status: No Alcohol use: none Drug use: none - Family History Mother Living Status: Hx Family Cancer: Yes Hx Family GI Disorders: Yes (GI Cancer) Internal Medicine - H&P: Meds Albuterol Neb [Proventil Neb] 2.5 mg IH Q4HR PRN #30 vial.neb 11/04/15 [Rx] Ipratropium Neb [Atrovent Neb] 0.5 mg IH Q6H PRN #30 inhsol 11/04/15 [Rx] Amiodarone HCl [Pacerone] 200 mg PO DAILY 12/14/15 [History] Amlodipine Besylate 10 mg PO DAILY 12/14/15 [History] Clopidogrel [Plavix] 75 mg PO DAILY 12/14/15 [History] Isosorbide MONOnitrate (24 HR) [Imdur] 60 mg PO DAILY 12/14/15 [History] Levothyroxine Sodium [Tirosint] 100 mg PO QAM 12/14/15 [History] Losartan Potassium [Cozaar] 100 mg PO DAILY 12/14/15 [History] Magnesium Oxide [Magnesium] 400 mg PO DAILY 12/14/15 [History] Metoprolol Succinate 50 mg PO DAILY 12/14/15 [History] Ondansetron HCl [Zofran] 4 mg PO DAILY PRN 12/14/15 [History] Pantoprazole Sodium [Protonix] 40 mg PO BID 12/14/15 [History] Potassium Chloride 10 meq PO DAILY 12/14/15 [History] Rivaroxaban [Xarelto] 15 mg PO DAILY 12/14/15 [History] Diclofenac Sodium [Diclo Gel] 1 each TP Q6HR PRN 11/22/17 [History] Lovastatin [Mevacor] 20 mg PO DAILY 11/22/17 [History] Aspirin Enteric Coated [Aspirin EC] 81 mg PO DAILY #30 tablet.dr 11/28/17 [Rx] Polyethylene Glycol 3350 [MiraLAX] 17 gm PO DAILY #14 powd.pack 12/11/17 [Rx] Acetaminophen [Tylenol] 500 mg PO Q6HR PRN #20 tablet 12/17/18 [Rx] Benzonatate [Tessalon] 200 mg PO TID PRN #20 capsule 12/17/18 [Rx] Cephalexin [Keflex] 500 mg PO QID #40 capsule 12/17/18 [Rx] Cetirizine HCl [Zyrtec] 10 mg PO DAILY #4 capsule 12/17/18 [Rx] Allergy/AdvReac Type Severity Reaction Status Date / Time ibuprofen Allergy Dizziness Verified 12/17/18 14:37 naproxen [From Naprosyn] Allergy Rash Verified 12/17/18 14:37 Sulfa (Sulfonamide Allergy Rash Verified 12/17/18 14:37 Antibiotics) All Systems PM: A 10-system review of systems was performed and is negative for pertinent findings except as documented above in the HPI. Review of systems: GENERAL: No fatigue HEENT: No rhinorrhea, No sore throat, No ear pain or discharge, No dysphagia or odynophagia PULMONARY: Admits chrnic cough, No Sputum production, Admits dyspnea on exertion CARDIOVASCULAR: No palpitations, No PND, No orthopnea GASTROINTESTINAL: No abdominal pain, No nausea, No vomiting, No constipation, No diarrhea, No hematemesis, No hematochezia MUSKULOSKELETAL: No edema, No swelling, No pain INTEGUMENTARY: No new skin lesions NERVOUS SYSTEM: No Dizziness, No weakness, No slurred speech, No diplopia or blurred/ loss vision, No numbness, No tinglng sensation. - Constitutional Vitals: Temp Pulse Resp BP Pulse Ox 36.7 C 64 18 121/56 91 05/04/19 12:53 05/04/19 15:30 05/04/19 15:30 05/04/19 15:30 05/04/19 15:30 Exam: GENERAL: Not in distress. Alert and Oriented HEENT: EOMI, PERRLA MOUTH: Moist oral mucosa NECK:No JVD, No lymph nodes. CHEST AND LUNGS: No tenderness on palpation of chest wall, Normal breath sounds, no wheezes or crackles HEART: S1 and S2 normal, no murmurs ABDOMEN: Soft, nontender, no organomegaly SKIN: Normal color, no rahses, no lesions EXTREMITIES: No deformity, no edema, no tenderness, no joint swelling or clubbing NEUROLOGICAL: Normal cognition, normal motor and sensory exam. Internal Med - H&P Results - Labs CBC & Chem 7: 05/04/19 13:00 05/04/19 13:00 Labs: Short CBC 05/04/19 Range/Units 13:00 WBC 7.1 (4.3-11.1) K/mcL Hgb 14.5 (11.5-15.4) g/dL Hct 43.7 (35.3-44.9) % Plt Count 263 (140-400) K/mcL Neutrophils # 5.2 (1.6-8.9) K/mcL BMP 05/04/19 13:00 Sodium 139 Potassium 4.0 Chloride 104 Carbon Dioxide 24 BUN 16 Creatinine 1.05 Glucose 114 H Calcium 9.3 Cardiac Enzymes 05/04/19 Range/Units 13:00 Troponin I < 0.03 (< 0.04) ng/mL - Impressions ITS Impressions Chest X-Ray 05/04/19 12:57 IMPRESSION: 1. No active pulmonary disease. D/ / Luiz Marc MD / Luiz Marc MD Interpreting Provider: Luiz Marc MD - Assessment and Plan (1) Chest pain Current Visit: Yes Status: Acute Assessment and plan: Patient with a significant history of CAD presents with sharp burning chest pain of sudden onset yesterday. Troponin <0.03 EKG without significant changes for ischemia or infarct We will cycle troponins Pain may be related to patient's GERD as well We will monitor on telemetry Qualifiers: Chest pain type: precordial pain Qualified Code(s): R07.2 - Precordial pain (2) GERD (gastroesophageal reflux disease) Current Visit: Yes Status: Acute Assessment and plan: Patient has a hx of GERD and states that current burning pain is "not exactly like reflux pain". Will resume PPIs. Qualifiers: Esophagitis presence: esophagitis presence not specified Qualified Code(s): K21.9 - Gastro-esophageal reflux disease without esophagitis (3) HTN (hypertension), benign Current Visit: No Status: Acute Assessment and plan: Blood pressure currently controlled We will resume home meds once they have been confirmed. (4) Obesity Current Visit: No Status: Acute Assessment and plan: Patient has been counseled on available weight loss options. Qualifiers: Obesity type: unspecified obesity type Obesity classification: adult class 2 (BMI 35 - 39.9) Serious obesity comorbidity presence: with serious comorbidity Body mass index: BMI 37.0-37.9 Qualified Code(s): E66.01 - Morbid (severe) obesity due to excess calories; Z68.37 - Body mass index (BMI) 37.0-37.9, adult (5) Atrial fibrillation Current Visit: No Status: Chronic Assessment and plan: Patient has a history of A. fib and and is on Xarelto and beta blockers Her rate is currently controlled Will resume home meds once confirmed Qualifiers: Atrial fibrillation type: unspecified Qualified Code(s): I48.91 - Unspeci fied atrial fibrillation (6) CAD (coronary artery disease) Current Visit: No Status: Chronic Assessment and plan: Hx of CAD s/p stent placment on On aspirin, pplavix and statin. Will continue medical management Qualifiers: Coronary Disease-Associated Artery/Lesion type: [place] artery [place] vs. 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 Monitor (8) Hypothyroid Current Visit: No Status: Chronic Assessment and plan: Continue levothyroxine Qualifiers: Hypothyroidism type: unspecified Qualified Code(s): E03.9 - Hypothyroidism, unspecified (9) DVT prophylaxis Current Visit: Yes Status: Acute Assessment and plan: Xarelto - Time Spent With Patient Total time spent is greater than 50% in coordination of care (as documented) at patient's floor/unit and/or counseling patient:
--- NOTE | 2019-05-04 16:12 | Emergency Department Note ---
Disposition Clinical Impression: Chest pain Qualifiers: Chest pain type: unspecified Qualified Code(s): R07.9 - Chest pain, unspecified Disposition: Admitted As Inpatient Condition: Good Referrals: NONE,PCP [Primary Care Provider] - Forms: ED Satisfaction Letter Time of Disposition: 16:12 General Adult HPI - General Chief complaint: ED Chest Pain Stated complaint: MAYITO Time Seen by Provider: 05/04/19 12:50 Source: patient, family Limitations: no limitations - History of Present Illness Pain Scale: 0 - Related Data Home Medications Medication Instructions Recorded Confirmed Amiodarone HCl [Pacerone] 200 mg PO DAILY 12/14/15 12/17/18 Amlodipine Besylate 10 mg PO DAILY 12/14/15 12/17/18 Clopidogrel [Plavix] 75 mg PO DAILY 12/14/15 12/17/18 Isosorbide MONOnitrate (24 HR) 60 mg PO DAILY 12/14/15 12/17/18 [Imdur] Levothyroxine Sodium [Tirosint] 100 mg PO QAM 12/14/15 12/17/18 Losartan Potassium [Cozaar] 100 mg PO DAILY 12/14/15 12/17/18 Magnesium Oxide [Magnesium] 400 mg PO DAILY 12/14/15 12/17/18 Metoprolol Succinate 50 mg PO DAILY 12/14/15 12/17/18 Ondansetron HCl [Zofran] 4 mg PO DAILY PRN 12/14/15 12/17/18 Pantoprazole Sodium [Protonix] 40 mg PO BID 12/14/15 12/17/18 Potassium Chloride 10 meq PO DAILY 12/14/15 12/17/18 Rivaroxaban [Xarelto] 15 mg PO DAILY 12/14/15 12/17/18 Diclofenac Sodium [Diclo Gel] 1 each TP Q6HR PRN 11/22/17 12/17/18 Lovastatin [Mevacor] 20 mg PO DAILY 11/22/17 12/17/18 Previous Rx's Medication Instructions Recorded Albuterol Neb [Proventil Neb] 2.5 mg IH Q4HR PRN #30 vial.neb 11/04/15 Ipratropium Neb [Atrovent Neb] 0.5 mg IH Q6H PRN #30 inhsol 11/04/15 Aspirin Enteric Coated [Aspirin EC] 81 mg PO DAILY #30 tablet. 11/28/17 Polyethylene Glycol 3350 [MiraLAX] 17 gm PO DAILY #14 powd.pack 12/11/17 Acetaminophen [Tylenol] 500 mg PO Q6HR PRN #20 tablet 12/17/18 Benzonatate [Tessalon] 200 mg PO TID PRN #20 capsule 12/17/18 Cephalexin [Keflex] 500 mg PO QID #40 capsule 12/17/18 Cetirizine HCl [Zyrtec] 10 mg PO DAILY #4 capsule 12/17/18 Allergies Allergy/AdvReac Type Severity Reaction Status Date / Time ibuprofen Allergy Dizziness Verified 12/17/18 14:37 naproxen [From Naprosyn] Allergy Rash Verified 12/17/18 14:37 Sulfa (Sulfonamide Allergy Rash Verified 12/17/18 14:37 Antibiotics) Constitutional: Reports: weakness. Denies: fever Eyes: Reports: as per HPI ENT ED: Reports: as per HPI Cardiovascular: Reports: chest pain Respiratory: Reports: as per HPI Gastrointestinal: Denies: nausea, vomiting Genitourinary: Reports: as per HPI Musculoskeletal: Reports: as per HPI Integumentary: Reports: as per HPI Neurological: Reports: as per HPI Psychiatric: Reports: as per HPI Endocrine: Reports: as per HPI Hematological/Lymphatic: Reports: as per HPI Allergic/Immunologic: Reports: as per HPI Past Medical History - Past Medical History Medical history: Reports: coronary artery disease, hyperlipidemia, hypertension, thyroid disease Surgical history: Reports: appendectomy, cholecystectomy, hysterectomy Psychiatric history: Reports: no psych history PENSIONS RETIREMENT PLAN SPECIALIST history: Reports: non-contributory - Social History Smoking Status: 2nd Hand Smoke Exposure Smokeless Tobacco Status: No Alcohol use: Reports: none Drug use: Reports: none Physical Exam - General Limitations: no limitations General appearance: alert, in no apparent distress Course Vital Signs Temperature 98.0 F 05/04/19 12:49 Pulse Rate 96 05/04/19 12:49 Respiratory Rate 18 05/04/19 12:49 Blood Pressure 150/77 05/04/19 12:49 O2 Sat by Pulse Oximetry 96 05/04/19 12:49 Temperature 98.0 F 05/04/19 12:53 Pulse Rate 96 05/04/19 12:53 Respiratory Rate 18 05/04/19 12:53 Blood Pressure 150/77 05/04/19 12:53 O2 Sat by Pulse Oximetry 96 05/04/19 13:23 Oxygen Delivery Oxygen Delivery Room Air Medical Decision Making - Lab Data Result diagrams: 05/04/19 13:00 05/04/19 13:00 Lab Results 05/04/19 05/04/19 05/04/19 Range/Units 13:00 13:00 13:00 WBC 7.1 (4.3-11.1) K/mcL RBC 4.79 (3.82-4.97) M/mcL Hgb 14.5 (11.5-15.4) g/dL Hct 43.7 (35.3-44.9) % MCV 91.2 (83.0-100.0) fL MCH 30.3 (28.0-33.3) pg MCHC 33.2 (31.6-35.5) g/dL RDW 13.1 (11.5-14.5) % Plt Count 263 (140-400) K/mcL MPV 9.4 (9.4-12.4) fL Immature Gran % 0.7 (0-4) % Seg Neutrophils % 72.5 % Lymphocytes % 15.4 % Monocytes % 9.0 % Eosinophils % 1.8 % Basophils % 0.6 % Neutrophils # 5.2 (1.6-8.9) K/mcL Lymphocytes # 1.1 (0.6-4.6) K/mcL Monocytes # 0.6 (0.0-1.3) K/mcL Eosinophils # 0.1 (0.0-0.6) K/mcL Basophils # 0.0 (0.0-0.2) K/mcL PT 19.2 H (9.4-12.1) Seconds INR 1.7 APTT 41.6 H (26.0-36.0) Seconds Sodium 139 (136-145) mEq/L Potassium 4.0 (3.5-5.1) mEq/L Chloride 104 (98-107) mEq/L Carbon Dioxide 24 (23-29) mEq/L BUN 16 (8-23) mg/dL Creatinine 1.05 (0.60-1.20) mg/dL Est GFR ( Amer) > 60 (> 60) Est GFR (Non-Af Amer) 50 L (> 60) BUN/Creatinine Ratio 15 (6-26) Glucose 114 H (70-105) mg/dL Calculated Osmolality 290 (280-300) Calcium 9.3 (8.6-10.3) mg/dL Troponin I < 0.03 (< 0.04) ng/mL Attestation Statement - Attestation Attestation: I reviewed the residents documentation and agree with the residents assessment and plan of care. I have personally had face to face time with the patient. (Brief History, Brief Exam, and MDM) I personally supervised and was present for the nelson/critical portions of the following procedures completed by the resident: EKG 78 year old female presents to the ED with complaints of MAYITO and has an extensive cardiac history with stent placement in [facility] ot a moderate heart score. She is havign continnue chest pain and we will treat with nitro therapy and has been given her full dose ASA. Marleni has a negative troponin and baseline EKG without new ischemic changes. admit ot medicine for CP r/o ACS
--- NOTE | 2019-05-04 16:22 | Electrocardiograph Report ---
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
[2019-05-05] MEDS ORDERED: Regadenoson 0.4 MG/5 ML SYRINGE IVP ONE (08:57)
[2019-05-05] MEDS ORDERED: DICLOFENAC SODIUM 4 GM TP PRN (16:42)
[2019-05-05] MEDS ORDERED: NON-FORMULARY MEDICATION 1 EACH EACH (Ondansetron Hcl [Zofran] 4 MG) PO PRN (16:42)
[2019-05-05] MEDS: amLODIPine 5 MG TABLET PO SCH (17:48)
[2019-05-05] MEDS: *HR* Amiodarone 200 MG TABLET PO SCH (17:48)
[2019-05-05] MEDS: *HR* Rivaroxaban 15 MG TABLET PO SCH (17:48)
[2019-05-06] MEDS ORDERED: Magnesium Oxide 400 MG TABLET PO SCH (09:00)
[2019-05-06] MEDS ORDERED: Isosorbide MONOnitrate (24 HR) 60 MG TAB.ER.24H PO SCH (09:00)
[2019-05-06] MEDS ORDERED: Metoprolol XL (24 HR) Succ 50 MG TAB.ER.24H PO SCH (09:00)
[2019-05-06] MEDS: amLODIPine 5 MG TABLET PO SCH (10:23)
[2019-05-06] MEDS: *HR* Rivaroxaban 15 MG TABLET PO SCH (10:23)
[2019-05-06] MEDS: *HR* Amiodarone 200 MG TABLET PO SCH (10:24)
[2019-05-06 10:30] VITALS: BP 124/69
--- NOTE | 2019-05-06 13:01 | Internal Med Progress Note ---
Hospitalist Progress Note - Encounter Date of Encounter: 05/05/19 Time of Encounter: 09:00 - Subjective Interval History: No acute events overnight. This progress note is for 05/05/19 encounter - Exam Vitals: Temp Pulse Resp BP Pulse Ox 98.0 F 63 18 124/69 93 05/06/19 10:21 05/06/19 10:21 05/06/19 10:21 05/06/19 10:21 05/06/19 10:21 Exam: GENERAL: Not in distress. Alert and Oriented HEENT: EOMI, PERRLA MOUTH: Moist oral mucosa NECK:No JVD, No lymph nodes. CHEST AND LUNGS: No tenderness on palpation of chest wall, Normal breath sounds, no wheezes or crackles HEART: S1 and S2 normal, no murmurs ABDOMEN: Soft, nontender, no organomegaly SKIN: Normal color, no rahses, no lesions EXTREMITIES: No deformity, no edema, no tenderness, no joint swelling or clubbi ng NEUROLOGICAL: Normal cognition, normal motor and sensory exam. - Assessment and Plan (1) Chest pain Current Visit: Yes Status: Acute Assessment and Plan: Patient with a significant history of CAD presents with sharp burning chest pain of sudden onset yesterday. Troponin <0.03 EKG without significant changes for ischemia or infarct Completed echo and 1st part of stress test today (2) CAD (coronary artery disease) Current Visit: Yes Status: Chronic Assessment and Plan: Chest pain with hx of CAD Echo completed and normal today. Completed 1st part of stress test (3) Atrial fibrillation Current Visit: Yes Status: Chronic Assessment and Plan: Patient has a history of A. 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 Monitor (5) Hypothyroid Current Visit: Yes Status: Chronic Assessment and Plan: Continue levothyroxine (6) HTN (hypertension), benign Current Visit: Yes Status: Acute Assessment and Plan: Blood pressure currently controlled We will resume home meds once they have been confirmed. (7) Obesity Current Visit: Yes Status: Acute Assessment and Plan: Patient has been counseled on available weight loss options. (8) GERD (gastroesophageal reflux disease) Current Visit: Yes Status: Acute Assessment and Plan: Patient has a hx of GERD and states that current burning pain is "not exactly l elvis reflux pain". Will resume PPIs. (9) DVT prophylaxis Current Visit: Yes Status: Acute Assessment and Plan: Xarelto - Time Spent with Patient Total time spent is greater than 50% in coordination of care (as documented) at patient's floor/unit and/or counseling patient: Internal Medicine: Result - Labs CBC & Chem 7: 05/04/19 13:00 05/04/19 13:00 - ABG Interpretation ABG results: PT/INR, D-dimer PT 19.2 Seconds (9.4-12.1) H 05/04/19 13:00 - Impressions Impressions Echocardiogram 05/05/19 07:31 Impressions: LVEF 50-55%. Normal LV chamber size, and systolic function. Mild concentric left ventricular hypertrophy. Mild left ventricular diastolic dysfunction. Atypical septal motion consistent with bundle branch block. Normal right ventricular structure and function. Mild to moderately dilated left atrium. No evidence of pulmonary hypertension. Mild tricuspid regurgitation. Left Ventricular Wall Motion: Rest Echo Findings All wall segments showed normal motion. Findings: Study Quality * Technically adequate exam. ECG Findings * Sinus rhythm with BBB. Left Ventricle * LVEF 50-55%. * Normal LV chamber size, and systolic function. * Mild concentric left ventricular hypertrophy. * Mild left ventricular diastolic dysfunction. * Atypical septal motion consistent with bundle branch block. Right Ventricle * Normal right ventricular structure and function. Left Atrium * Mild to moderately dilated left atrium. Right Atrium * Normal right atrial size. Interatrial Septum * No evidence of PFO by color Doppler. Aortic Valve * Trileaflet aortic valve. * Normal aortic valve structure. * No aortic regurgitation. * No aortic stenosis. Mitral Valve * Normal mitral valve structure. * No mitral stenosis. * Trace mitral regurgitation. Tricuspid Valve * No tricuspid stenosis. * Normal tricuspid valve structure. * No evidence of pulmonary hypertension. * Mild tricuspid regurgitation. Pulmonic Valve * Trace pulmonic regurgitation. Aorta * Normally sized aortic root. Pericardium * The pericardium appears normal. IVC * Normal IVC dimensions and inspiratory collapse. Pulmonary Artery * Normal visualized portions of the main pulmonary artery. Device lead * A device lead was visualized in the right atrium and right ventricle. Consult Discharge Plan - Plan Referrals: Yajaira Ryan DO [Partnered Physician] - 05/11/19 1:30 pm (1) Chest pain Qualifiers: Chest pain type: precordial pain Qualified Code(s): R07.2 - Precordial pain (2) CAD (coronary artery disease) Qualifiers: Coronary Disease-Associated Artery/Lesion type: [place] artery [place] vs. transplanted heart: [place] heart Associated angina: angina presence unspecified Qualified Code(s): I25.10 - Atherosclerotic heart disease of [place] coronary artery without angina pectoris (3) Atrial fibrillation Qualifiers: Atrial fibrillation type: unspecified Qualified Code(s): I48.91 - Unspecified atrial fibrillation (5) Hypothyroid Qualifiers: Hypothyroidism type: unspecified Qualified Code(s): E03.9 - Hypothyroidism, unspecified (7) Obesity Qualifiers: Obesity type: unspecified obesity type Obesity classification: adult class 2 (BMI 35 - 39.9) Serious obesity comorbidity presence: with serious comorbidity Body mass index: BMI 37.0-37.9 Qualified Code(s): E66.01 - Morbid (severe) obesity due to excess calories; Z68.37 - Body mass index (BMI) 37.0-37.9, adult (8) GERD (gastroesophageal reflux disease) Qualifiers: Esophagitis presence: esophagitis presence not specified Qualified Code(s): K21.9 - Gastro-esophageal reflux disease without esophagitis
--- NOTE | 2019-05-06 13:03 | Discharge Summary ---
Date of Encounter: 05/06/19 Time of Encounter: 09:00 - Discharge Diagnosis (1) CAD (coronary artery disease) Priority: Primary Status: Chronic Assessment and Plan: 78 year old female with past medical history of atrial fibrillation on anticoagulation, previous stroke, GERD, coronary artery disease status post stent placement on 11/26/2017, status post pacemaker for tachy-danny syndrome, hypertension, hyperlipidemia and hypothyroidism. She presented with chest pain of 1 day duration. Patient states that she was watching TV at home yesterday afternoon when she began experiencing sharp burning chest pain across her sternu m and left side of her chest. She states that the pain resolved shortly without intervention. Was about 8/10, nonradiating, with no exacerbation or relieving factors She was assessed with chest pain with hx of CAD rule out ACS. Troponins were negative. EKG showed no acute changes. Echo was completed and normal today. She also completed a stress test that showed no acute ischemia. Pain is likely from GERD. Pacemaker sit was also assessed and was non tender and non erythematous. She was discharged in a stable condition and counseled to follow up with cardiology as an outpatient Qualifiers: Coronary Disease-Associated Artery/Lesion type: [place] artery [place] vs. transplanted heart: [place] heart Associated angina: angina presence unspecified Qualified Code(s): I25.10 - Atherosclerotic heart disease of [place] coronary artery without angina pectoris (2) Atrial fibrillation Priority: Primary Status: Chronic Qualifiers: Atrial fibrillation type: unspecified Qualified Code(s): I48.91 - Unspecified atrial fibrillation (3) Cardiac pacemaker in situ Priority: Primary Status: Chronic (4) Hypothyroid Priority: Primary Status: Chronic Qualifiers: Hypothyroidism type: unspecified Qualified Code(s): E03.9 - Hypothyroidism, unspecified (5) HTN (hypertension), benign Priority: Primary Status: Acute (6) Obesity Priority: Primary Status: Acute Qualifiers: Obesity type: unspecified obesity type Obesity classification: adult class 2 (BMI 35 - 39.9) Serious obesity comorbidity presence: with serious comorbidity Body mass index: BMI 37.0-37.9 Qualified Code(s): E66.01 - Morbid (severe) obesity due to excess calories; Z68.37 - Body mass index (BMI) 37.0-37.9, adult (7) Chest pain Priority: Primary Status: Acute Qualifiers: Chest pain type: precordial pain Qualified Code(s): R07.2 - Precordial pain (8) DVT prophylaxis Priority: Primary Status: Acute (9) GERD (gastroesophageal reflux disease) Priority: Primary Status: Acute Qualifiers: Esophagitis presence: esophagitis presence not specified Qualified Code(s): K21.9 - Gastro-esophageal reflux disease without esophagitis Hospital course: Ms. Rutherford is a 78 year old female - Time Spent with Patient Total time spent providing and/or coordinating discharge services: - Discharge Medications Prescriptions: Continued Levothyroxine Sodium [Tirosint] 100 mcg PO QAM Isosorbide MONOnitrate (24 HR) [Imdur] 90 mg PO DAILY Rivaroxaban [Xarelto] 15 mg PO DAILY Clopidogrel [Plavix] 75 mg PO DAILY Pantoprazole Sodium [Protonix] 40 mg PO BID Magnesium Oxide [Magnesium] 400 mg PO DAILY Ondansetron HCl [Zofran] 4 mg PO DAILY PRN PRN Reason: Nausea Lovastatin [Mevacor] 20 mg PO DAILY Polyethylene Glycol 3350 [MiraLAX] 17 gm PO DAILY #14 powd.pack Amiodarone HCl 200 mg PO DAILY Amlodipine Besylate 10 mg PO DAILY Diclofenac Sodium [Voltaren] 4 gm TP Q6H PRN PRN Reason: Pain Losartan Potassium 50 mg PO DAILY Metoprolol Succinate [Toprol Xl] 50 mg PO DAILY Potassium Chloride [Klor-Con 10] 10 meq PO DAILY Home Medications: Clopidogrel [Plavix] 75 mg PO DAILY 12/14/15 [History] Isosorbide MONOnitrate (24 HR) [Imdur] 90 mg PO DAILY 12/14/15 [History] Levothyroxine Sodium [Tirosint] 100 mcg PO QAM 12/14/15 [History] Magnesium Oxide [Magnesium] 400 mg PO DAILY 12/14/15 [History] Ondansetron HCl [Zofran] 4 mg PO DAILY PRN 12/14/15 [History] Pantoprazole Sodium [Protonix] 40 mg PO BID 12/14/15 [History] Rivaroxaban [Xarelto] 15 mg PO DAILY 12/14/15 [History] Lovastatin [Mevacor] 20 mg PO DAILY 11/22/17 [History] Polyethylene Glycol 3350 [MiraLAX] 17 gm PO DAILY #14 powd.pack 12/11/17 [Rx] Amiodarone HCl 200 mg PO DAILY 05/05/19 [History] Amlodipine Besylate 10 mg PO DAILY 05/05/19 [History] Diclofenac Sodium [Voltaren] 4 gm TP Q6H PRN 05/05/19 [History] Losartan Potassium 50 mg PO DAILY 05/05/19 [History] Metoprolol Succinate [Toprol Xl] 50 mg PO DAILY 05/05/19 [History] Potassium Chloride [Klor-Con 10] 10 meq PO DAILY 05/05/19 [History] Allergies/Adverse Reactions: Allergy/AdvReac Type Severity Reaction Status Date / Time ibuprofen Allergy Dizziness Verified 05/05/19 11:25 naproxen [From Naprosyn] Allergy Rash Verified 05/05/19 11:25 Sulfa (Sulfonamide Allergy Rash Verified 05/05/19 11:25 Antibiotics) Date of admission: 05/04/19 15:20 Primary care physician: PCP NONE - Constitutional Vitals: Temp Pulse Resp BP Pulse Ox 98.0 F 63 18 124/69 93 05/06/19 10:21 05/06/19 10:21 05/06/19 10:21 05/06/19 10:21 05/06/19 10:21 Exam: GENERAL: Not in distress. Alert and Oriented HEENT: EOMI, PERRLA MOUTH: Moist oral mucosa NECK:No JVD, No lymph nodes. CHEST AND LUNGS: No tenderness on palpation of chest wall, Normal breath sounds, no wheezes or crackles HEART: S1 and S2 normal, no murmurs ABDOMEN: Soft, nontender, no organomegaly SKIN: Normal color, no rahses, no lesions EXTREMITIES: No deformity, no edema, no tenderness, no joint swelling or clubbing NEUROLOGICAL: Normal cognition, normal motor and sensory exam. - Patient Status Disposition: Home, Self-Care Condition: Good - Discharge Instructions Follow Up With: Yajaira Ryan DO [Partnered Physician] - 05/11/19 1:30 pm
== END 2019-05-06 14:52 | disposition home or self-care (01) ==
LOC: 3BNU 12:47 → EMEROOARM 12:47 → SUATTDRO 15:20 → 3BNU 16:07
PROVIDERS: ADMIT Internal Medicine; ATTEND Internal Medicine

== ENCOUNTER 2019-12-30 12:24 | Observation (INO) ==
[2019-12-30] MEDS ORDERED: Isovue-370 500 ML BOTTLE IVP ONE (12:49)
[2019-12-30] MEDS ORDERED: 0.9 % Sodium Chloride 1,000 ML IVC STA (12:51)
[2019-12-30] MEDS ORDERED: Ondansetron 4 MG/2 ML VIAL IVP STA (12:51)
[2019-12-30] MEDS ORDERED: *HR* FentaNYL (PF) 100 MCG/2 ML VIAL IVP ONE (12:51)
[2019-12-30 13:45] LABS: Basophils % 0.4 %; Eosinophils # 0.1 K/mcL (0.0-0.6); Eosinophils % 1.7 %; Hematocrit 43.1 % (35.3-44.9); Hemoglobin 13.9 g/dL (11.5-15.4); INR 1.6; Immature Granulocytes % 0.3 % (0-4); Lymphocytes # 1.8 K/mcL (0.6-4.6); Lymphocytes % 23.5 %; Mean Corpuscular HGB Conc 32.3 g/dL (31.6-35.5); Mean Corpuscular Hemoglobin 30.5 pg (28.0-33.3); Mean Corpuscular Volume 94.5 fL (83.0-100.0); Mean Platelet Volume 9.7 fL (9.4-12.4); Monocytes # 0.6 K/mcL (0.0-1.3); Monocytes % 7.2 %; Neutrophils # 5.1 K/mcL (1.6-8.9); Platelet Count 231 K/mcL (140-400); Prothrombin Time 18.2 Seconds (9.4-12.1); Red Blood Count 4.56 M/mcL (3.82-4.97); Red Cell Distribution Width 12.2 % (11.5-14.5); Segmented Neutrophils % 66.9 %; White Blood Count 7.7 K/mcL (4.3-11.1)
[2019-12-30 14:03] LABS: Alanine Aminotransferase 17 Units/L (7-52); Albumin 3.8 g/dL (3.5-5.7); Albumin/Globulin Ratio 1.5 (1.1-2.2); Alkaline Phosphatase 91 Units/L (34-104); Aspartate Amino Transferase 21 Units/L (13-39); BUN/Creatinine Ratio 14 (6-26); Bilirubin,Direct 0.2 mg/dL (0.0-0.2); Bilirubin,Indirect 0.3 mg/dL (0.0-1.0); Bilirubin,Total 0.5 mg/dL (0.3-1.0); Blood Urea Nitrogen 16 mg/dL (8-23); Calcium 9.2 mg/dL (8.6-10.3); Carbon Dioxide 26 mEq/L (23-29); Chloride 106 mEq/L (98-107); Globulin 2.6 g/dL (2.4-3.5); Glucose 116 mg/dL (70-105); Osmolality,Calculated 290 (280-300); Potassium 3.9 mEq/L (3.5-5.1); Sodium 139 mEq/L (136-145); Total Protein 6.4 g/dL (6.4-8.9); Troponin I < 0.03 ng/mL (< 0.04); eGFR For African Americans 54 (> 60); eGFR For Non-African Americans 44 (> 60)
[2019-12-30 14:16] LABS: Lipase < 3 Units/L (11-82)
[2019-12-30] MEDS ORDERED: cefTRIAXone 1,000 MG in Water for inj. (sterile) 10 ML IVP ONE (15:00)
[2019-12-30] MEDS ORDERED: MetroNIDAZOLE 500 MG/100 ML 500 MG/100 ML BAG IVPB ONE (15:00)
[2019-12-30] MEDS ORDERED: Ondansetron 4 MG/2 ML VIAL IVP PRN (16:15)
[2019-12-30] MEDS ORDERED: Naloxone 0.4 MG/ML INJ IVP PRN (16:15)
[2019-12-30] MEDS ORDERED: SODIUM CHLORIDE/NAHCO3/KCL/PEG 4,000 ML SOLN.RECON PO ONE (16:19)
[2019-12-30 16:54] LABS: Hematocrit 43.5 % (35.3-44.9)
[2019-12-30 17:08] LABS: C-Reactive Protein 11 mg/L (Less than 10)
[2019-12-30] MEDS: Pantoprazole 40 MG in 0.9 % Sodium Chloride Mini Bag 100 ML IVC SCH ×2 (17:32→22:43)
[2019-12-30 23:00] LABS: Adenovirus F 40/41 PCR Not detected (Not detect); Astrovirus PCR Not detected (Not detect); C.difficile Toxin A/B Gene PCR Not detected (Not detect); Campylobacter by PCR Not detected (Not detect); Cryptosporidium by PCR Not detected (Not detect); Cyclospora cayetanensis PCR Not detected (Not detect); E. coli O157 by PCR Not detected (Not detect); Entamoeba histolytica PCR Not detected (Not detect); Enteroaggregative E.coli(EAEC) Not detected (Not detect); Enteropathogenic E.coli(EPEC) Not detected (Not detect); Enterotoxigenic E.coli (ETEC) Not detected (Not detect); Giardia lamblia PCR Not detected (Not detect); Norovirus GI/GII PCR Not detected (Not detect); Plesiomonas shigelloides PCR Not detected (Not detect); Rotavirus A PCR Not detected (Not detect); Salmonella PCR Not detected (Not detect); Sapovirus PCR Not detected (Not detect); Shig/EnteroinvasiveE coli EIEC Not detected (Not detect); Shigalike tox-prod E coli STEC Not detected (Not detect); Vibrio PCR Not detected (Not detect); Vibrio cholerae PCR Not detected (Not detect); Yersinia enterocolitica PCR Not detected (Not detect)
[2019-12-31 00:27] LABS: Hematocrit 41.1 % (35.3-44.9); Hemoglobin 13.2 g/dL (11.5-15.4); Mean Corpuscular HGB Conc 32.1 g/dL (31.6-35.5); Mean Corpuscular Hemoglobin 30.3 pg (28.0-33.3); Mean Corpuscular Volume 94.5 fL (83.0-100.0); Mean Platelet Volume 9.7 fL (9.4-12.4); Platelet Count 218 K/mcL (140-400); Red Blood Count 4.35 M/mcL (3.82-4.97); Red Cell Distribution Width 12.2 % (11.5-14.5); White Blood Count 8.7 K/mcL (4.3-11.1)
[2019-12-31 00:46] LABS: BUN/Creatinine Ratio 12 (6-26); Blood Urea Nitrogen 12 mg/dL (8-23); Calcium 8.3 mg/dL (8.6-10.3); Carbon Dioxide 21 mEq/L (23-29); Chloride 104 mEq/L (98-107); Glucose 109 mg/dL (70-105); Osmolality,Calculated 284 (280-300); Potassium 3.5 mEq/L (3.5-5.1); Sodium 137 mEq/L (136-145); eGFR For African Americans > 60 (> 60); eGFR For Non-African Americans 53 (> 60)
[2019-12-31] MEDS: Piperacillin/Tazobactam 3.375 GM in 0.9 % Sodium Chloride Mini Bag 100 ML IVPB SCH ×2 (01:26→10:17)
[2019-12-31] MEDS ORDERED: Prochlorperazine 10 MG/2 ML VIAL IVP PRN (01:36)
[2019-12-31] MEDS: Pantoprazole 40 MG in 0.9 % Sodium Chloride Mini Bag 100 ML IVC SCH (04:02)
[2019-12-31] MEDS ORDERED: amLODIPine 5 MG TABLET PO SCH (09:00)
[2019-12-31] MEDS ORDERED: Magnesium Oxide 400 MG TABLET PO SCH (09:00)
[2019-12-31] MEDS ORDERED: Isosorbide MONOnitrate (24 HR) 60 MG TAB.ER.24H PO SCH (09:00)
[2019-12-31] MEDS ORDERED: Metoprolol XL (24 HR) Succ 50 MG TAB.ER.24H PO SCH (09:00)
[2019-12-31] MEDS ORDERED: *HR* Amiodarone 200 MG TABLET PO SCH (09:00)
[2019-12-31] MEDS ORDERED: Lidocaine -MPF 2% 2 ML VIAL ONE (09:05)
[2019-12-31] MEDS ORDERED: 0.9 % Sodium Chloride 1,000 ML IVC SCH (11:00)
[2019-12-31 13:12] VITALS: BP 150/62
[2019-12-31] MEDS ORDERED: Sucralfate 1 GM TABLET PO SCH (21:00)
[2019-12-31] MEDS ORDERED: metroNIDAZOLE 500 MG TABLET PO SCH (21:00)
== END 2019-12-31 16:44 | disposition home or self-care (01) ==
LOC: EMEROOARM 12:24 → 3BNU 12:24 → SUATTDRO 15:52 → 3BNU 16:45
PROVIDERS: ADMIT Family Medicine; ATTEND Family Medicine
PROC: ENDOEBX (2019-12-31 10:15)
PROC: ENDOCCB (2019-12-31 10:15)

== ENCOUNTER 2020-12-10 13:26 | Observation (INO) ==
[2020-12-10] MEDS ORDERED: GI Cocktail 40 ML EACH PO ONE (14:18)
[2020-12-10 14:41] LABS: Basophils # 0.1 K/mcL (0.0-0.2); Basophils % 0.7 %; Eosinophils # 0.2 K/mcL (0.0-0.6); Hematocrit 43.5 % (35.3-44.9); Immature Granulocytes % 0.4 % (0-4); Lymphocytes % 26.8 %; Mean Corpuscular HGB Conc 32.2 g/dL (31.6-35.5); Mean Corpuscular Hemoglobin 30.2 pg (28.0-33.3); Mean Corpuscular Volume 93.8 fL (83.0-100.0); Mean Platelet Volume 9.9 fL (9.4-12.4); Monocytes # 0.6 K/mcL (0.0-1.3); Monocytes % 7.5 %; Neutrophils # 4.5 K/mcL (1.6-8.9); Platelet Count 239 K/mcL (140-400); Red Blood Count 4.64 M/mcL (3.82-4.97); Red Cell Distribution Width 13.2 % (11.5-14.5); Segmented Neutrophils % 61.6 %; White Blood Count 7.3 K/mcL (4.3-11.1)
[2020-12-10 15:00] LABS: Alanine Aminotransferase 30 Units/L (7-52); Albumin/Globulin Ratio 1.3 (1.1-2.2); Alkaline Phosphatase 93 Units/L (34-104); Aspartate Amino Transferase 35 Units/L (13-39); BUN/Creatinine Ratio 14 (6-26); Bilirubin,Total 0.7 mg/dL (0.3-1.0); Blood Urea Nitrogen 16 mg/dL (8-23); Calcium 9.6 mg/dL (8.6-10.3); Carbon Dioxide 24 mEq/L (23-29); Chloride 104 mEq/L (98-107); Globulin 3.1 g/dL (2.4-3.5); Glucose 106 mg/dL (70-105); Osmolality,Calculated 288 (280-300); Potassium 3.7 mEq/L (3.5-5.1); Sodium 138 mEq/L (136-145); Total Protein 7.1 g/dL (6.4-8.9); Troponin I < 0.03 ng/mL (< 0.04); eGFR For African Americans 53 (> 60); eGFR For Non-African Americans 44 (> 60)
[2020-12-10] MEDS ORDERED: Mag Hydrox/Al Hydrox/Simeth 30 ML UDC PO PRN (17:02)
[2020-12-10] MEDS ORDERED: Naloxone 0.4 MG/ML INJ IVP PRN (17:02)
[2020-12-10] MEDS ORDERED: Melatonin 3 MG TABLET PO PRN (17:02)
[2020-12-10] MEDS ORDERED: Ondansetron 4 MG/2 ML VIAL IVP PRN (17:02)
[2020-12-10] MEDS ORDERED: Acetaminophen 325 MG TABLET PO PRN (17:02)
[2020-12-10] MEDS ORDERED: Perflutren Lipid Microsphere 1.3 ML in 0.9 % Sodium Chloride 8.7 ML IVP PRN (17:06)
[2020-12-10] MEDS ORDERED: amLODIPine 5 MG TABLET PO ONE (17:14)
[2020-12-11 01:54] LABS: INR 1.2; Prothrombin Time 13.4 Seconds (9.4-12.1)
[2020-12-11 02:02] LABS: Calcium 9.1 mg/dL (8.6-10.3); Potassium 3.6 mEq/L (3.5-5.1)
[2020-12-11 02:05] LABS: Chol/HDL Ratio 2.4 (0-4.9)
[2020-12-11 02:18] LABS: Thyroid Stimulating Hormone 2.497 mcIU/mL (0.340-5.600)
[2020-12-11 02:21] LABS: Estimated Average Glucose 117 mg/dl; Hemoglobin A1C 5.7 %
[2020-12-11] MEDS: *HR* Amiodarone 200 MG TABLET PO SCH (07:48)
[2020-12-11] MEDS: Metoprolol XL (24 HR) Succ 50 MG TAB.ER.24H PO SCH (07:48)
[2020-12-11] MEDS: Isosorbide MONOnitrate (24 HR) 30 MG TAB.ER.24H PO SCH (07:48)
[2020-12-11] MEDS: Sucralfate 1 GM TABLET PO SCH ×2 (07:48→16:54)
[2020-12-11] MEDS ORDERED: *HR* Rivaroxaban 15 MG TABLET PO SCH (17:00)
[2020-12-12] MEDS ORDERED: Regadenoson 0.4 MG/5 ML SYRINGE IVP ONE (07:04)
[2020-12-12] MEDS: Sucralfate 1 GM TABLET PO SCH (08:53)
[2020-12-12] MEDS: Metoprolol XL (24 HR) Succ 50 MG TAB.ER.24H PO SCH (08:53)
[2020-12-12] MEDS: Isosorbide MONOnitrate (24 HR) 30 MG TAB.ER.24H PO SCH (08:53)
[2020-12-12] MEDS: *HR* Amiodarone 200 MG TABLET PO SCH (08:53)
[2020-12-12 16:26] VITALS: BP 115/52
== END 2020-12-12 17:13 | disposition home or self-care (01) ==
LOC: EMEROOARM 13:26 → 3BNU 13:26 → SUATTDRO 16:31 → 3BNU 17:50
PROVIDERS: ADMIT Internal Medicine; ATTEND Registered Nurse

== ENCOUNTER 2021-07-03 09:40 | Observation (INO) ==
[2021-07-03 10:21] LABS: Basophils # 0.1 K/mcL (0.0-0.2); Basophils % 0.7 %; Eosinophils # 0.3 K/mcL (0.0-0.6); Eosinophils % 3.6 %; Hematocrit 43.5 % (35.3-44.9); Hemoglobin 14.2 g/dL (11.5-15.4); Immature Granulocytes % 0.3 % (0-4); Lymphocytes # 2.2 K/mcL (0.6-4.6); Lymphocytes % 30.9 %; Mean Corpuscular HGB Conc 32.6 g/dL (31.6-35.5); Mean Corpuscular Hemoglobin 30.7 pg (28.0-33.3); Mean Corpuscular Volume 94.2 fL (83.0-100.0); Mean Platelet Volume 9.9 fL (9.4-12.4); Monocytes # 0.6 K/mcL (0.0-1.3); Monocytes % 8.8 %; Platelet Count 213 K/mcL (140-400); Red Blood Count 4.62 M/mcL (3.82-4.97); Segmented Neutrophils % 55.7 %; White Blood Count 7.2 K/mcL (4.3-11.1)
[2021-07-03 10:33] LABS: INR 1.4; Prothrombin Time 15.2 Seconds (9.4-12.1)
[2021-07-03 11:17] LABS: BUN/Creatinine Ratio 12 (6-26); Blood Urea Nitrogen 12 mg/dL (8-23); Calcium 8.9 mg/dL (8.6-10.3); Carbon Dioxide 26 mEq/L (23-29); Chloride 104 mEq/L (98-107); Glucose 104 mg/dL (70-105); Osmolality,Calculated 288 (280-300); Potassium 4.1 mEq/L (3.5-5.1); Sodium 139 mEq/L (136-145); Troponin I < 0.03 ng/mL (< 0.04); eGFR For African Americans > 60 (> 60); eGFR For Non-African Americans 52 (> 60)
[2021-07-03] MEDS ORDERED: Naloxone 0.4 MG/ML INJ IVP PRN (14:31)
[2021-07-03] MEDS ORDERED: Ondansetron 4 MG/2 ML VIAL IVP PRN (14:31)
[2021-07-03] MEDS ORDERED: Acetaminophen 325 MG TABLET PO PRN (14:31)
[2021-07-03] MEDS: amLODIPine 5 MG TABLET PO SCH (16:50)
[2021-07-03] MEDS: *HR* Amiodarone 200 MG TABLET PO SCH (16:50)
[2021-07-03] MEDS: Isosorbide MONOnitrate (24 HR) 60 MG TAB.ER.24H PO SCH (16:50)
[2021-07-03] MEDS: Metoprolol XL (24 HR) Succ 50 MG TAB.ER.24H PO SCH (16:51)
[2021-07-03] MEDS: Pantoprazole 40 MG VIAL IVP SCH (16:51)
[2021-07-03] MEDS: Sucralfate 1 GM TABLET PO SCH (20:36)
[2021-07-04 01:50] LABS: Basophils % 0.6 %; Eosinophils # 0.2 K/mcL (0.0-0.6); Eosinophils % 3.7 %; Hematocrit 40.2 % (35.3-44.9); Hemoglobin 13.1 g/dL (11.5-15.4); Immature Granulocytes % 0.5 % (0-4); Lymphocytes # 2.4 K/mcL (0.6-4.6); Lymphocytes % 38.4 %; Mean Corpuscular HGB Conc 32.6 g/dL (31.6-35.5); Mean Corpuscular Hemoglobin 30.8 pg (28.0-33.3); Mean Corpuscular Volume 94.6 fL (83.0-100.0); Mean Platelet Volume 10.6 fL (9.4-12.4); Monocytes # 0.8 K/mcL (0.0-1.3); Monocytes % 12.2 %; Neutrophils # 2.8 K/mcL (1.6-8.9); Platelet Count 216 K/mcL (140-400); Red Blood Count 4.25 M/mcL (3.82-4.97); Red Cell Distribution Width 12.9 % (11.5-14.5); Segmented Neutrophils % 44.6 %; White Blood Count 6.3 K/mcL (4.3-11.1)
[2021-07-04 01:53] LABS: BUN/Creatinine Ratio 12 (6-26); Blood Urea Nitrogen 12 mg/dL (8-23); Calcium 8.6 mg/dL (8.6-10.3); Carbon Dioxide 24 mEq/L (23-29); Chloride 103 mEq/L (98-107); Glucose 95 mg/dL (70-105); Magnesium 1.8 mg/dL (1.6-2.6); Osmolality,Calculated 282 (280-300); Potassium 3.9 mEq/L (3.5-5.1); Sodium 136 mEq/L (136-145); eGFR For African Americans > 60 (> 60); eGFR For Non-African Americans 51 (> 60)
[2021-07-04] MEDS: Pantoprazole 40 MG VIAL IVP SCH (05:31)
[2021-07-04] MEDS: amLODIPine 5 MG TABLET PO SCH (08:56)
[2021-07-04] MEDS: *HR* Amiodarone 200 MG TABLET PO SCH (08:57)
[2021-07-04] MEDS: Sucralfate 1 GM TABLET PO SCH (08:57)
[2021-07-04] MEDS: Metoprolol XL (24 HR) Succ 50 MG TAB.ER.24H PO SCH (08:57)
[2021-07-04] MEDS: Isosorbide MONOnitrate (24 HR) 60 MG TAB.ER.24H PO SCH (08:57)
[2021-07-04] MEDS ORDERED: Cholecalciferol (D-3) 1,000 UNIT (25MCG) TABLET PO SCH (09:00)
[2021-07-04 11:11] VITALS: BP 127/61; PULSE 59; TEMP 97.7; O2SAT 92
[2021-07-04] MEDS ORDERED: polyethylene glycoL 3350 17 GM POWD.PACK PO SCH (12:30)
== END 2021-07-04 18:38 | disposition home or self-care (01) ==
LOC: EMEROOARM 09:40 → 3BNU 09:40 → SUATTDRO 14:12 → 3BNU 16:24
PROVIDERS: ADMIT Internal Medicine; ATTEND Internal Medicine

== ENCOUNTER 2022-05-22 15:01 | Observation (INO) ==
[2022-05-22 15:32] LABS: Basophils % 0.5 %; Eosinophils # 0.1 K/mcL (0.0-0.6); Eosinophils % 1.7 %; Hematocrit 45.7 % (35.3-44.9); Immature Granulocytes % 0.1 % (0-4); Lymphocytes # 2.8 K/mcL (0.6-4.6); Lymphocytes % 35.8 %; Mean Corpuscular HGB Conc 32.8 g/dL (31.6-35.5); Mean Corpuscular Hemoglobin 30.9 pg (28.0-33.3); Mean Platelet Volume 10.4 fL (9.4-12.4); Monocytes # 0.5 K/mcL (0.0-1.3); Neutrophils # 4.3 K/mcL (1.6-8.9); Platelet Count 214 K/mcL (140-400); Red Blood Count 4.86 M/mcL (3.82-4.97); Red Cell Distribution Width 13.2 % (11.5-14.5); Segmented Neutrophils % 55.9 %; White Blood Count 7.7 K/mcL (4.3-11.1)
[2022-05-22 15:39] LABS: INR 1.3; Prothrombin Time 14.7 Seconds (9.4-12.1)
[2022-05-22 15:42] LABS: Activated Partial Thrombo Time 40.9 Seconds (26.0-36.0)
[2022-05-22 15:51] LABS: BUN/Creatinine Ratio 15 (6-26); Blood Urea Nitrogen 16 mg/dL (8-23); Calcium 9.5 mg/dL (8.6-10.3); Carbon Dioxide 25 mEq/L (23-29); Chloride 104 mEq/L (98-107); Glucose 109 mg/dL (70-105); Osmolality,Calculated 282 (280-300); Potassium 4.3 mEq/L (3.5-5.1); Sodium 135 mEq/L (136-145)
[2022-05-22 15:52] LABS: Troponin I < 0.03 ng/mL (< 0.04)
[2022-05-22] MEDS ORDERED: Iopamidol - 370 500 ML MLS IVP ONE (21:18)
[2022-05-22 21:42] LABS: Bacteria,Urine Few per hpf (None-Few); Bilirubin,Urine Negative (Negative); Blood,Urine Small (Negative); Clarity,Urine Clear (Clear); Color,Urine Yellow (Yellow); Glucose,Urine (UA) Normal (Normal); Ketones,Urine Negative (Negative); Leukocyte Esterase,Urine Negative (Negative); Mucus,Urine Few per lpf (None-Few); Nitrite,Urine Negative (Negative); Protein,Urine Trace mg/dL (Neg-Trace); Specific Gravity,Urine 1.023 (1.010-1.025); Squamous Epithelial Cell,Urine Few per hpf (None-Few); Urobilinogen,Urine Normal (Normal)
[2022-05-22] MEDS ORDERED: cefTRIAXone 1,000 MG in Water for inj. (sterile) 10 ML IVP ONE (21:49)
[2022-05-22] MEDS ORDERED: Ondansetron ODT 4 MG TAB.RAPDIS SL PRN (23:21)
[2022-05-22] MEDS ORDERED: Melatonin 3 MG TABLET PO PRN (23:21)
[2022-05-22] MEDS ORDERED: Naloxone 0.4 MG/ML INJ IVP PRN (23:21)
[2022-05-22] MEDS ORDERED: Nitroglycerin 0.4 MG TAB.SUBL SL PRN (23:25)
[2022-05-22] MEDS ORDERED: *HR* Dextrose 50 % in Water (Syg) 50 ML SYRINGE IVP PRN (23:38)
[2022-05-22] MEDS ORDERED: Dextrose Gel 15 GM/37.5 ML TUBE PO PRN ×2 (23:38)
[2022-05-22] MEDS ORDERED: D5% in Water 1,000 ML IVC PRN (23:38)
[2022-05-23 04:02] LABS: Hematocrit 41.5 % (35.3-44.9); Hemoglobin 13.5 g/dL (11.5-15.4); Mean Corpuscular HGB Conc 32.5 g/dL (31.6-35.5); Mean Corpuscular Hemoglobin 30.1 pg (28.0-33.3); Mean Corpuscular Volume 92.6 fL (83.0-100.0); Mean Platelet Volume 10.7 fL (9.4-12.4); Platelet Count 221 K/mcL (140-400); Red Blood Count 4.48 M/mcL (3.82-4.97); Red Cell Distribution Width 13.2 % (11.5-14.5)
[2022-05-23 04:27] LABS: BUN/Creatinine Ratio 16 (6-26); Blood Urea Nitrogen 15 mg/dL (8-23); Calcium 9.1 mg/dL (8.6-10.3); Carbon Dioxide 24 mEq/L (23-29); Chloride 104 mEq/L (98-107); Cholesterol 119 mg/dL (< 200); Glucose 91 mg/dL (70-105); HDL Cholesterol 40 mg/dL (40-59); LDL Cholesterol,Calculated 69 mg/dL (< 100); Magnesium 1.8 mg/dL (1.6-2.6); Osmolality,Calculated 282 (280-300); Phosphorous 3.5 mg/dL (2.7-4.5); Sodium 136 mEq/L (136-145); Triglycerides 52 mg/dL (< 150); Troponin I < 0.03 ng/mL (< 0.04)
[2022-05-23] MEDS ORDERED: Regadenoson 0.4 MG/5 ML SYRINGE IVP ONE (06:00)
[2022-05-23] MEDS: Aspirin 81 MG TAB.CHEW PO SCH (09:35)
[2022-05-23] MEDS: Acetaminophen 325 MG TABLET PO PRN ×2 (09:40→22:39)
[2022-05-23] MEDS ORDERED: *HR* Rivaroxaban 15 MG TABLET PO SCH (17:30)
[2022-05-23] MEDS: Metoprolol XL (24 HR) Succ 50 MG TAB.ER.24H PO SCH (18:26)
[2022-05-23] MEDS: Isosorbide MONOnitrate (24 HR) 60 MG TAB.ER.24H PO SCH (18:26)
[2022-05-23] MEDS: *HR* Amiodarone 200 MG TABLET PO SCH (18:26)
[2022-05-23] MEDS: Magnesium Oxide 400 MG TABLET PO SCH (18:27)
[2022-05-23] MEDS ORDERED: cefTRIAXone 1,000 MG in 0.9 % Sodium Chloride 10 ML IVP SCH (21:00)
[2022-05-24] MEDS: Magnesium Oxide 400 MG TABLET PO SCH (08:43)
[2022-05-24] MEDS: Metoprolol XL (24 HR) Succ 50 MG TAB.ER.24H PO SCH (08:43)
[2022-05-24] MEDS: Aspirin 81 MG TAB.CHEW PO SCH (08:43)
[2022-05-24] MEDS: Isosorbide MONOnitrate (24 HR) 60 MG TAB.ER.24H PO SCH (08:43)
[2022-05-24] MEDS: *HR* Amiodarone 200 MG TABLET PO SCH (08:44)
[2022-05-24] MEDS ORDERED: Cholecalciferol (D-3) 1,000 UNIT (25MCG) TABLET PO SCH (09:00)
[2022-05-24] MEDS ORDERED: amLODIPine 5 MG TABLET PO SCH (09:00)
[2022-05-24 11:05] VITALS: BP 116/61; PULSE 62; TEMP 98.3; O2SAT 93
[2022-05-24] MEDS ORDERED: *HR* Rivaroxaban 10 MG TABLET PO SCH (17:00)
== END 2022-05-24 12:45 | disposition home or self-care (01) ==
LOC: 2ANU 15:01 → EMEROOARM 15:01 → SUATTDRO 23:24 → 2ANU 05-23 00:30
PROVIDERS: ADMIT Internal Medicine; ATTEND Hospitalist